=== PATIENT | male | born 1975 | race Caucasian/White ===

== ENCOUNTER 2017-04-14 19:56 | Emergency (ER) | payer BC, OTHER ==
[2017-04-14 20:33] VITALS: BP 114/89
--- NOTE | 2017-04-14 21:42 | EDM.PDOC ---
ED HPI GENERAL MEDICAL PROBLEM - General Chief Complaint: Upper Extremity Injury/Pain Stated Complaint: feel at work hand pain [phone] Time Seen by Provider: 04/14/17 21:30 Source of Information: Reports: Patient History Limitations: Reports: No Limitations - History of Present Illness INITIAL COMMENTS - FREE TEXT/NARRATIVE: fell at work onto left side when stepped into pile of dried peas and slopped. Initial triage c/o left elbow feeling funny. No c/o at exam, just needed to be checked out for work Treatments DIGITAL ASSOCIATE MEDIA DIRECTOR: Reports: Other (see below) Other Treatments DIGITAL ASSOCIATE MEDIA DIRECTOR: none - Related Data Allergies Allergy/AdvReac Type Severity Reaction Status Date / Time No Known Allergies Allergy Verified 11/13/16 17:27 Home Meds: Home Meds Omeprazole 20 mg PO DAILY 11/04/13 [History] Triamterene/Hydrochlorothiazid [Triamterene-HCTZ 37.5-25 MG] 1 each PO DAILY [History] Pramipexole [Mirapex] 0.25 mg PO BEDTIME 08/08/16 [History] Sertraline [Zoloft] 50 mg PO DAILY 08/08/16 [History] Simvastatin [Zocor] 40 mg PO DAILY 08/08/16 [History] clomiPHENE Citrate [Serophene] 25 mg PO DAILY 08/08/16 [History] metFORMIN [Glucophage] 500 mg PO BIDMEALS 08/08/16 [History] Warfarin [Coumadin] 7.5 mg PO DAILY 04/14/17 [History] Past Medical History HEENT History: Reports: Impaired Vision Other HEENT History: wears corrective lenses Cardiovascular History: Reports: High Cholesterol, Hypertension Respiratory History: Reports: PE Other Respiratory History: "blood clots in the lung" Gastrointestinal History: Reports: GERD Genitourinary History: Reports: None Other Musculoskeletal History: carpal tunnel surgery right hand 6 mo ago Neurological History: Reports: None Psychiatric History: Reports: Depression Endocrine/Metabolic History: Reports: Diabetes, Type II Hematologic History: Reports: Anticoagulation Therapy Immunologic History: Reports: None Oncologic (Cancer) History: Reports: None Dermatologic History: Reports: None - Infectious Disease History Infectious Disease History: Reports: None - Past Surgical History Head Surgeries/Procedures: Reports: None Social & Family History - Family History Family Medical History: Noncontributory Cardiac: Reports: CAD, Hypertension - Tobacco Use Smoking Status *Q: Never Smoker Used Tobacco, but Quit: No Second Hand Smoke Exposure: Yes - Caffeine Use Caffeine Use: Reports: Coffee, Energy Drinks, Soda - Alcohol Use Days Per Week of Alcohol Use: 1 Number of Drinks Per Day: 1 Total Drinks Per Week: 1 - Recreational Drug Use Recreational Drug Use: No Drug Use in Last 12 Months: No Review of Systems - Review of Systems Review Of Systems: See Below Constitutional: Reports: No Symptoms Musculoskeletal: Denies: Hand Pain, Joint Pain, Joint Swelling, Muscle Pain, Muscle Stiffness Skin: Reports: No Symptoms Neurological: Reports: No Symptoms. Denies: Numbness, Weakness ED EXAM, GENERAL - Physical Exam Exam: See Below Exam Limited By: No Limitations General Appearance: Alert, No Apparent Distress, Obese Ears: Normal External Exam Nose: Normal Inspection Throat/Mouth: Normal Inspection Respiratory/Chest: No Respiratory Distress Cardiovascular: Normal Peripheral Pulses, Regular Rate, Rhythm Back Exam: Normal Inspection Extremities: Normal Inspection, Normal Range of Motion, Non-Tender. No: Pedal Edema, Arm Pain, Leg Pain, Limited Range of Motion, Redness Neurological: Alert, Oriented Psychiatric: Normal Affect Skin Exam: Warm, Dry, Intact Course - Vital Signs Last Recorded V/S: Last Vital Signs Temp 97.4 F 04/14/17 20:00 Pulse 105 H 04/14/17 20:00 Resp 18 04/14/17 20:00 BP 114/89 04/14/17 20:00 Pulse Ox 84 L 04/14/17 20:00 Departure - Departure Time of Disposition: 21:38 Disposition: Home, Self-Care 01 Condition: good Clinical Impression: Fall Qualifiers: Encounter type: initial encounter Qualified Code(s): W19.XXXA - Unspecified fall, initial encounter - Discharge Information Instructions: Burner or Stinger Nerve Injury With [facility] Forms: ED Department Discharge Additional Instructions: follow up as needed if pain develops may use tyelenol or ibuprofen No indication for xray as there Full range of motion without pain, no change in sensation
== END 2017-04-14 21:45 | disposition home or self-care (01) ==
LOC: DL.ED 19:56
DX: Z04.3 Encounter for examination and observation following other accident (principal); E78.00 Pure hypercholesterolemia, unspecified; I10 Essential (primary) hypertension; K21.9 Gastro-esophageal reflux disease without esophagitis; E11.9 Type 2 diabetes mellitus without complications; F32.9 Major depressive disorder, single episode, unspecified; Z79.899 Other long term (current) drug therapy; W19.XXXA Unspecified fall, initial encounter; Y99.0 Civilian activity done for income or pay
CPT/HCPCS: 99283

== ENCOUNTER 2017-07-01 15:15 | Emergency (ER) | payer BC, MEDICAID ==
--- NOTE | 2017-07-01 15:40 | EDM.PDOC ---
ED HPI GENERAL MEDICAL PROBLEM - General Chief Complaint: General Stated Complaint: MIGRAINES, [id number] Time Seen by Provider: 07/01/17 15:35 Source of Information: Reports: Patient History Limitations: Reports: No Limitations - History of Present Illness INITIAL COMMENTS - FREE TEXT/NARRATIVE: 42 yo white male c/o fuzzy sensation and blurred vision last PM and then again this AM. PMHx. Pulmonary Embolus and takes Coumadin Onset Date: 06/17/17 Onset Time: 12:00 Duration: Week(s): Severity: Moderate - Related Data Allergies Allergy/AdvReac Type Severity Reaction Status Date / Time No Known Allergies Allergy Verified 11/13/16 17:27 Home Meds: Home Meds Omeprazole 20 mg PO DAILY 11/04/13 [History] Triamterene/Hydrochlorothiazid [Triamterene-HCTZ 37.5-25 MG] 1 each PO DAILY [History] Pramipexole [Mirapex] 0.25 mg PO BEDTIME 08/08/16 [History] Sertraline [Zoloft] 50 mg PO DAILY 08/08/16 [History] Simvastatin [Zocor] 40 mg PO DAILY 08/08/16 [History] clomiPHENE Citrate [Serophene] 25 mg PO DAILY 08/08/16 [History] metFORMIN [Glucophage] 500 mg PO BIDMEALS 08/08/16 [History] Warfarin [Coumadin] 7.5 mg PO DAILY 04/14/17 [History] Past Medical History HEENT History: Reports: Impaired Vision Other HEENT History: wears corrective lenses Cardiovascular History: Reports: High Cholesterol, Hypertension Respiratory History: Reports: PE Other Respiratory History: "blood clots in the lung" Gastrointestinal History: Reports: GERD Genitourinary History: Reports: None Other Musculoskeletal History: carpal tunnel surgery right hand 6 mo ago Neurological History: Reports: None Psychiatric History: Reports: Depression Endocrine/Metabolic History: Reports: Diabetes, Type II Hematologic History: Reports: Anticoagulation Therapy Immunologic History: Reports: None Oncologic (Cancer) History: Reports: None Dermatologic History: Reports: None - Infectious Disease History Infectious Disease History: Reports: None - Past Surgical History Head Surgeries/Procedures: Reports: None Social & Family History - Family History Family Medical History: Noncontributory Cardiac: Reports: CAD, Hypertension - Tobacco Use Smoking Status *Q: Never Smoker Used Tobacco, but Quit: No Second Hand Smoke Exposure: Yes - Caffeine Use Caffeine Use: Reports: Coffee, Energy Drinks, Soda - Alcohol Use Days Per Week of Alcohol Use: 1 Number of Drinks Per Day: 1 Total Drinks Per Week: 1 - Recreational Drug Use Recreational Drug Use: No Drug Use in Last 12 Months: No ED ROS GENERAL - Review of Systems Review Of Systems: See Below Constitutional: Reports: No Symptoms HEENT: Reports: No Symptoms, Vision Change (mild blurred vision) Respiratory: Reports: No Symptoms Cardiovascular: Reports: No Symptoms Endocrine: Reports: No Symptoms GI/Abdominal: Reports: No Symptoms : Reports: No Symptoms Musculoskeletal: Reports: No Symptoms Skin: Reports: No Symptoms Neurological: Reports: Dizziness Psychiatric: Reports: No Symptoms Hematologic/Lymphatic: Reports: No Symptoms Immunologic: Reports: No Symptoms ED EXAM, GENERAL - Physical Exam Exam: See Below Exam Limited By: No Limitations General Appearance: Obese (morbid) Eye Exam: Bilateral Eye: EOMI, PERRL Ears: Normal External Exam Nose: Normal Inspection Throat/Mouth: Normal Inspection Head: Atraumatic, Normocephalic Neck: Normal Inspection, Supple Respiratory/Chest: No Respiratory Distress, Lungs Clear Cardiovascular: Normal Peripheral Pulses, Regular Rate, Rhythm Peripheral Pulses: 2+: Carotid (L), Carotid (R) GI/Abdominal: Normal Bowel Sounds, Soft Back Exam: Normal Inspection Extremities: Normal Inspection, Normal Range of Motion, Non-Tender Neurological: Alert, Oriented, CN II-XII Intact, Normal Cognition Psychiatric: Normal Affect Skin Exam: Warm, Dry Lymphatic: No Adenopathy Course - Vital Signs Last Recorded V/S: Last Vital Signs Temp 36.3 C 07/01/17 15:34 Pulse 93 07/01/17 15:34 Resp BP 94/48 L 07/01/17 15:36 Pulse Ox 92 L 07/01/17 15:34 - Orders/Labs/Meds Orders: Active Orders 24 hr Category Date Time Status Head wo Cont [CT] Urgent Exams 07/01/17 15:39 Taken DOPamine/Dextrose 5%-Water [DOPamine in D5W 400 MG/250 Med 07/01/17 16:30 Active ML] 400 mg in 250 ml IV TITRATE Sodium Chloride 0.9% [Normal Saline] 1,000 ml Med 07/01/17 15:45 Active IV ASDIRECTED Medication Orders Sodium Chloride (Normal Saline) 1,000 mls @ 75 mls/hr IV ASDIRECTED YULISA Last Admin: 07/01/17 15:43 Dose: 75 mls/hr Dopamine HCl/Dextrose (Dopamine In D5w 400 Mg/250 Ml) 400 mg in 250 mls @ 13.438 mls/hr IV TITRATE YULISA; 2 MCG/KG/MIN PRN Reason: Protocol Labs: Laboratory Tests 07/01/17 07/01/17 07/01/17 Range/Units 15:38 15:38 15:38 WBC 9.4 (5.0-10.0) 10^3/uL RBC 5.65 (4.6-6.2) 10^6/uL Hgb 14.6 (14.0-18.0) g/dL Hct 46.5 (40.0-54.0) % MCV 82.3 (80-100) fL MCH 25.8 L (27.0-34.0) pg MCHC 31.4 L (33.0-35.0) g/dL Plt Count 280 (150-450) 10^3/uL Neut % (Auto) 59.1 (42.2-75.2) % Lymph % (Auto) 28.9 (20.5-50.1) % Campbell % (Auto) 9.7 H (2-8) % Eos % (Auto) 2.0 (1.0-3.0) % Baso % (Auto) 0.3 (0.0-1.0) % PT 41.4 H (9.0-12.0) SEC INR 4.1 H (0.9-1.2) APTT 43.1 H (22.0-34.0) SEC Sodium 137 (135-145) mmol/L Potassium 4.4 (3.6-5.0) mmol/L Chloride 96 L (101-111) mmol/L Carbon Dioxide 24.0 (21.0-31.0) mmol/L Anion Gap 21.4 BUN 80 H (7-18) mg/dL Creatinine 7.7 H (0.6-1.3) mg/dL Est Cr Clr Drug Dosing 12.90 mL/min Estimated GFR (MDRD) 8 BUN/Creatinine Ratio 10.38 Glucose 120 H (74-105) mg/dL Calcium 8.7 (8.4-10.2) mg/dl Total Bilirubin 0.5 (0.2-1.0) mg/dL AST 39 (10-42) IU/L ALT 32 (10-60) IU/L Alkaline Phosphatase 51 (42-121) IU/L Troponin I 0.04 H* (0.00-0.02) ng/ml Total Protein 7.3 (6.7-8.2) g/dl Albumin 3.4 (3.2-5.5) g/dl Globulin 3.9 Albumin/Globulin Ratio 0.87 Meds: Medications Generic Name Dose Route Start Last Admin Trade Name Freq PRN Reason Stop Dose Admin Sodium Chloride 1,000 mls @ 75 mls/hr 07/01/17 15:45 07/01/17 15:43 Normal Saline IV 75 mls/hr ASDIRECTED YULISA Administration Dopamine HCl/Dextrose 400 mg in 250 mls @ 13.438 mls/hr 07/01/17 16:30 Dopamine In D5w 400 Mg/250 Ml IV TITRATE YULISA Protocol 2 MCG/KG/MIN Departure - Departure Time of Disposition: 16:55 Disposition: DC/Tfer to Other 70 Condition: Fair Clinical Impression: Elevated troponin Hypotension Qualifiers: Hypotension type: unspecified hypotension type Qualified Code(s): I95.9 - Hypotension, unspecified Renal failure Qualifiers: Renal failure chronicity: acute Acute renal failure type: unspecified Qualified Code(s): N17.9 - Acute kidney failure, unspecified - Discharge Information Forms: Interfacility Transfer EMTALA - My Orders Last 24 Hours: My Active Orders 07/01/17 15:39 Head wo Cont [CT] Urgent 07/01/17 15:45 Sodium Chloride 0.9% [Normal Saline] 1,000 ml IV ASDIRECTED 07/01/17 16:30 DOPamine/Dextrose 5%-Water [DOPamine in D5W 400 MG/250 ML] 400 mg in 250 ml IV TITRATE - Assessment/Plan Last 24 Hours: My Active Orders 07/01/17 15:39 Head wo Cont [CT] Urgent 07/01/17 15:45 Sodium Chloride 0.9% [Normal Saline] 1,000 ml IV ASDIRECTED 07/01/17 16:30 DOPamine/Dextrose 5%-Water [DOPamine in D5W 400 MG/250 ML] 400 mg in 250 ml IV TITRATE
[2017-07-01] MEDS ORDERED: Sodium Chloride 0.9% 1,000 ML IV SCH (15:45)
[2017-07-01] MEDS ORDERED: DOPamine/Dextrose 5%-Water 400 MG/250 ML BAG IV SCH (16:30)
[2017-07-01] MEDS ORDERED: Sodium Chloride 0.9% 1,000 ML IV ONE ×2 (16:55→16:56)
[2017-07-01 17:07] VITALS: BP 72/28
== END 2017-07-01 17:21 | disposition other institution (70) ==
LOC: DL.ED 15:15
DX: I95.9 Hypotension, unspecified (principal); N17.9 Acute kidney failure, unspecified; R79.89 Other specified abnormal findings of blood chemistry; I10 Essential (primary) hypertension; E78.00 Pure hypercholesterolemia, unspecified; K21.9 Gastro-esophageal reflux disease without esophagitis; F32.9 Major depressive disorder, single episode, unspecified; E11.9 Type 2 diabetes mellitus without complications; Z79.84 Long term (current) use of oral hypoglycemic drugs; Z79.01 Long term (current) use of anticoagulants; Z79.899 Other long term (current) drug therapy; Z86.711 Personal history of pulmonary embolism
CPT/HCPCS: 36415; 70450; 80053; 84484; 85025; 85610; 85730; 96360; 96361; 96365; 99285; J1265; J7030

== ENCOUNTER 2017-10-31 18:05 | Emergency (ER) | payer MEDICAID ==
--- NOTE | 2017-10-31 18:43 | EDM.PDOC ---
<Shaq Espino Bradley - Last Filed: 10/31/17 18:48> ED HPI GENERAL MEDICAL PROBLEM - General Chief Complaint: Abdominal Pain Stated Complaint: LOWER RIGHT SIDE ABD PAINS, [id number] Time Seen by Provider: 10/31/17 18:35 Source of Information: Reports: Patient History Limitations: Reports: No Limitations - History of Present Illness INITIAL COMMENTS - FREE TEXT/NARRATIVE: This 42 yo male patient reports to the ED with intermittent right lower quadrant abdominal pain. The patient reports his pain started at about 1430 while he was washing dishes. The patient reports his symptoms come like "twinges ". The patient reports he has a history of Type 2 diabetes, anxiety and blood clots. The patient also reported to nursing staff that his "kidneys stopped working quite a while ago." Onset: Today Onset Date: 10/31/17 Onset Time: 14:30 Duration: Intermittent Location: Reports: Abdomen (right lower quadrant pain) Quality: Reports: Sharp Severity: Moderate Improves with: Reports: None Worsens with: Reports: None Associated Symptoms: Reports: No Other Symptoms Right Lower Abdominal Pain Score (Numeric/FACES): 5 - Related Data Allergies Allergy/AdvReac Type Severity Reaction Status Date / Time No Known Allergies Allergy Verified 10/31/17 18:10 Home Meds: Home Meds Omeprazole 20 mg PO DAILY 11/04/13 [History] Triamterene/Hydrochlorothiazid [Triamterene-HCTZ 37.5-25 MG] 1 each PO DAILY [History] Pramipexole [Mirapex] 0.25 mg PO BEDTIME 08/08/16 [History] Sertraline [Zoloft] 50 mg PO DAILY 08/08/16 [History] Simvastatin [Zocor] 40 mg PO DAILY 08/08/16 [History] clomiPHENE Citrate [Serophene] 25 mg PO DAILY 08/08/16 [History] metFORMIN [Glucophage] 1,000 mg PO BIDMEALS 08/08/16 [History] Warfarin [Coumadin] 11 mg PO DAILY 04/14/17 [History] Lisinopril 5 mg PO DAILY 10/31/17 [History] glyBURIDE [Glyburide] 5 mg PO 10/31/17 [History] traZODone HCl [Trazodone HCl] 100 mg PO BEDTIME 10/31/17 [History] Past Medical History HEENT History: Reports: Impaired Vision Other HEENT History: wears corrective lenses Cardiovascular History: Reports: High Cholesterol, Hypertension Respiratory History: Reports: PE Other Respiratory History: "blood clots in the lung" Gastrointestinal History: Reports: GERD Genitourinary History: Reports: None Other Musculoskeletal History: carpal tunnel surgery right hand Neurological History: Reports: None Psychiatric History: Reports: Depression Endocrine/Metabolic History: Reports: Diabetes, Type II Hematologic History: Reports: Anticoagulation Therapy Immunologic History: Reports: None Oncologic (Cancer) History: Reports: None Dermatologic History: Reports: None - Infectious Disease History Infectious Disease History: Reports: None - Past Surgical History Head Surgeries/Procedures: Reports: None Social & Family History - Family History Family Medical History: Noncontributory Cardiac: Reports: CAD, Hypertension - Tobacco Use Smoking Status *Q: Never Smoker Used Tobacco, but Quit: No Second Hand Smoke Exposure: Yes - Caffeine Use Caffeine Use: Reports: Soda - Alcohol Use Days Per Week of Alcohol Use: 1 Number of Drinks Per Day: 1 Total Drinks Per Week: 1 - Recreational Drug Use Recreational Drug Use: No Drug Use in Last 12 Months: No ED ROS GENERAL - Review of Systems Review Of Systems: ROS reveals no pertinent complaints other than HPI. ED EXAM, GI/ABD - Physical Exam Exam: See Below Exam Limited By: No Limitations General Appearance: Alert, WD/WN, Mild Distress, Obese (morbid obesity ) Eyes: Bilateral: Normal Appearance, EOMI Ears: Normal External Exam, Normal Canal, Hearing Grossly Normal, Normal TMs Nose: Normal Inspection, Normal Mucosa, No Blood Throat/Mouth: Normal Inspection, Normal Lips, Normal Teeth, Normal Gums, Normal Oropharynx, Normal Voice, No Airway Compromise Head: Atraumatic, Normocephalic Neck: Normal Inspection, Supple, Non-Tender, Full Range of Motion Respiratory/Chest: No Respiratory Distress, Lungs Clear, Normal Breath Sounds, No Accessory Muscle Use, Chest Non-Tender Cardiovascular: Normal Peripheral Pulses, Regular Rate, Rhythm, No Edema, No Gallop, No JVD, No Murmur, No Rub GI/Abdominal Exam: Normal Bowel Sounds, Soft, Non-Tender, No Organomegaly, No Distention, No Abnormal Bruit, Other (morbid obesity limits examination) (Male) Exam: Deferred Rectal (Males) Exam: Deferred Back Exam: Normal Inspection, Full Range of Motion, NT Extremities: Normal Inspection, Normal Range of Motion, Non-Tender, Pedal Edema (chronic) Neurological: Alert, Oriented, CN II-XII Intact, Normal Cognition, Normal Reflexes, No Motor/Sensory Deficits Psychiatric: Normal Affect, Normal Mood Skin Exam: Warm, Dry, Intact, Normal Color, No Rash Lymphatic: No Adenopathy Course - Vital Signs Last Recorded V/S: Last Vital Signs Temp 98.6 F 10/31/17 20:38 Pulse 75 10/31/17 20:38 Resp 16 10/31/17 20:38 BP 101/55 L 10/31/17 20:38 Pulse Ox 92 L 10/31/17 20:38 - Orders/Labs/Meds Orders: Active Orders 24 hr Category Date Time Status Abdomen Pelvis wo Cont [CT] Urgent Exams 10/31/17 19:48 Taken DRUG SCREEN URINE BIORAD [URCHEM] Stat Lab 10/31/17 18:24 Uncollected UA W/MICROSCOPIC [URIN] Stat Lab 10/31/17 18:24 Uncollected Labs: Laboratory Tests 10/31/17 10/31/17 10/31/17 Range/Units 18:39 18:39 18:39 WBC 13.2 H (5.0-10.0) 10^3/uL RBC 5.15 (4.6-6.2) 10^6/uL Hgb 14.6 (14.0-18.0) g/dL Hct 45.6 (40.0-54.0) % MCV 88.5 D (80-100) fL MCH 28.3 (27.0-34.0) pg MCHC 32.0 L (33.0-35.0) g/dL Plt Count 299 (150-450) 10^3/uL Neut % (Auto) 63.8 (42.2-75.2) % Lymph % (Auto) 26.5 (20.5-50.1) % Ness % (Auto) 7.8 (2-8) % Eos % (Auto) 1.7 (1.0-3.0) % Baso % (Auto) 0.2 (0.0-1.0) % PT 21.1 H D (9.0-12.0) SEC INR 2.1 H (0.9-1.2) D-Dimer, Quantitative (0-400) ng/mL Sodium 136 (135-145) mmol/L Potassium 3.6 (3.6-5.0) mmol/L Chloride 97 L (101-111) mmol/L Carbon Dioxide 30.0 (21.0-31.0) mmol/L Anion Gap 12.6 BUN 17 D (7-18) mg/dL Creatinine 0.9 D (0.6-1.3) mg/dL Est Cr Clr Drug Dosing 110.40 mL/min Estimated GFR (MDRD) > 60 BUN/Creatinine Ratio 18.88 Glucose 109 H (74-105) mg/dL Calcium 8.7 (8.4-10.2) mg/dl Total Bilirubin 0.4 (0.2-1.0) mg/dL AST 20 (10-42) IU/L ALT 20 (10-60) IU/L Alkaline Phosphatase 47 (42-121) IU/L Total Protein 7.3 (6.7-8.2) g/dl Albumin 3.6 (3.2-5.5) g/dl Globulin 3.7 Albumin/Globulin Ratio 0.97 Amylase (28-100) U/L Lipase (22-51) U/L 10/31/17 10/31/17 Range/Units 18:39 18:57 WBC (5.0-10.0) 10^3/uL RBC (4.6-6.2) 10^6/uL Hgb (14.0-18.0) g/dL Hct (40.0-54.0) % MCV (80-100) fL MCH (27.0-34.0) pg MCHC (33.0-35.0) g/dL Plt Count (150-450) 10^3/uL Neut % (Auto) (42.2-75.2) % Lymph % (Auto) (20.5-50.1) % Ness % (Auto) (2-8) % Eos % (Auto) (1.0-3.0) % Baso % (Auto) (0.0-1.0) % PT (9.0-12.0) SEC INR (0.9-1.2) D-Dimer, Quantitative < 100 (0-400) ng/mL Sodium (135-145) mmol/L Potassium (3.6-5.0) mmol/L Chloride (101-111) mmol/L Carbon Dioxide (21.0-31.0) mmol/L Anion Gap BUN (7-18) mg/dL Creatinine (0.6-1.3) mg/dL Est Cr Clr Drug Dosing mL/min Estimated GFR (MDRD) BUN/Creatinine Ratio Glucose (74-105) mg/dL Calcium (8.4-10.2) mg/dl Total Bilirubin (0.2-1.0) mg/dL AST (10-42) IU/L ALT (10-60) IU/L Alkaline Phosphatase (42-121) IU/L Total Protein (6.7-8.2) g/dl Albumin (3.2-5.5) g/dl Globulin Albumin/Globulin Ratio Amylase 30 (28-100) U/L Lipase 16 L (22-51) U/L Departure - Departure Disposition: Home, Self-Care 01 Clinical Impression: Abdominal pain Qualifiers: Abdominal location: right lower quadrant Qualified Code(s): R10.31 - Right lower quadrant pain - Discharge Information Instructions: Abdominal Pain, Adult, [id number] Forms: ED Department Discharge Additional Instructions: tylenol 650mg every 4 hours s needed increase fruit and fiber in diet follow up in clinic with primary care if pain not improving - My Orders Last 24 Hours: My Active Orders 10/31/17 19:48 Abdomen Pelvis wo Cont [CT] Urgent - Assessment/Plan Last 24 Hours: My Active Orders 10/31/17 19:48 Abdomen Pelvis wo Cont [CT] Urgent <Linnette Cardenas - Last Filed: 10/31/17 20:57> Course - Radiology Interpretation Free Text/Narrative:: CT abdomen and pelvis: No evidence of acute abdominopelvic pathology. - Re-Assessments/Exams Free Text/Narrative Re-Assessment/Exam: 10/31/17 20:55 Pain intermittent no change in severity. CT abdomen negative. Departure - Departure Time of Disposition: 20:56 Condition: Good
[2017-10-31 19:12] LABS: CHLORIDE,CL 97 mmol/L (101-111); SODIUM,NA 136 mmol/L (135-145)
[2017-10-31 21:03] VITALS: BP 103/48
== END 2017-10-31 21:10 | disposition home or self-care (01) ==
LOC: DL.ED 18:05
DX: R10.31 Right lower quadrant pain (principal); I10 Essential (primary) hypertension; E66.01 Morbid (severe) obesity due to excess calories; E78.00 Pure hypercholesterolemia, unspecified; E11.9 Type 2 diabetes mellitus without complications; K21.9 Gastro-esophageal reflux disease without esophagitis; Z79.01 Long term (current) use of anticoagulants; Z77.22 Contact with and (suspected) exposure to environmental tobacco smoke (acute) (chronic); Z79.84 Long term (current) use of oral hypoglycemic drugs; Z79.899 Other long term (current) drug therapy
CPT/HCPCS: 36415; 74176; 80053; 82150; 83690; 85025; 85379; 85610; 99284

== ENCOUNTER 2018-01-02 07:53 | Emergency (ER) | payer MEDICAID ==
[2018-01-02 08:03] VITALS: BP 131/74
[2018-01-02] MEDS ORDERED: Sodium Chloride 0.9% 1,000 ML IV ONE (08:44)
--- NOTE | 2018-01-02 08:51 | EDM.PDOC ---
ED HPI GENERAL MEDICAL PROBLEM - General Chief Complaint: General Stated Complaint: DIZZY, HEADACH, [id number] Time Seen by Provider: 01/02/18 08:40 Source of Information: Reports: Patient History Limitations: Reports: No Limitations - History of Present Illness INITIAL COMMENTS - FREE TEXT/NARRATIVE: This 42 yo male patient was brought to the ED due to intermittent "twinges" of a headache and intermittent dizziness over the past 2-4 days. The patient denies any nausea/vomiting, diarrhea or fevers/chills. The patient reports he has not been drinking much water over the past week, but has been drinking more soda over the past week. The patient has not been seen by his primary care facility at this time. Duration: Day(s):, Intermittent Location: Reports: Generalized Severity: Mild Improves with: Reports: None Worsens with: Reports: None Associated Symptoms: Reports: Headaches (intermittent "twinges"), Other ( intermittent dizzy spells) Treatments [employer] E[employer]MENT [employer]ATOR: Denies: Acetaminophen, NSAIDS - Related Data Allergies Allergy/AdvReac Type Severity Reaction Status Date / Time No Known Allergies Allergy Verified 01/02/18 08:00 Home Meds: Home Meds Omeprazole 20 mg PO DAILY 11/04/13 [History] Triamterene/Hydrochlorothiazid [Triamterene-HCTZ 37.5-25 MG] 1 each PO DAILY [History] Pramipexole [Mirapex] 0.25 mg PO BEDTIME 08/08/16 [History] Sertraline [Zoloft] 50 mg PO DAILY 08/08/16 [History] Simvastatin [Zocor] 40 mg PO DAILY 08/08/16 [History] clomiPHENE Citrate [Serophene] 25 mg PO DAILY 08/08/16 [History] metFORMIN [Glucophage] 1,000 mg PO BIDMEALS 08/08/16 [History] Warfarin [Coumadin] 11 mg PO DAILY 04/14/17 [History] Lisinopril 5 mg PO DAILY 10/31/17 [History] glyBURIDE [Glyburide] 5 mg PO 10/31/17 [History] traZODone HCl [Trazodone HCl] 100 mg PO BEDTIME 10/31/17 [History] Past Medical History HEENT History: Reports: Impaired Vision Other HEENT History: wears corrective lenses Cardiovascular History: Reports: High Cholesterol, Hypertension Respiratory History: Reports: PE Other Respiratory History: "blood clots in the lung" Gastrointestinal History: Reports: GERD Genitourinary History: Reports: None Other Musculoskeletal History: carpal tunnel surgery right hand Neurological History: Reports: None Psychiatric History: Reports: Depression Endocrine/Metabolic History: Reports: Diabetes, Type II Hematologic History: Reports: Anticoagulation Therapy Immunologic History: Reports: None Oncologic (Cancer) History: Reports: None Dermatologic History: Reports: None - Infectious Disease History Infectious Disease History: Reports: None - Past Surgical History Head Surgeries/Procedures: Reports: None Social & Family History - Family History Family Medical History: Noncontributory Cardiac: Reports: CAD, Hypertension - Tobacco Use Smoking Status *Q: Never Smoker Used Tobacco, but Quit: No Second Hand Smoke Exposure: No - Caffeine Use Caffeine Use: Reports: Soda - Alcohol Use Days Per Week of Alcohol Use: 1 Number of Drinks Per Day: 1 Total Drinks Per Week: 1 - Recreational Drug Use Recreational Drug Use: No Drug Use in Last 12 Months: No ED ROS GENERAL - Review of Systems Review Of Systems: ROS reveals no pertinent complaints other than HPI. ED EXAM, GENERAL - Physical Exam Exam: See Below Exam Limited By: No Limitations General Appearance: Alert, WD/WN, Moderate Distress, Obese Eye Exam: Bilateral Eye: EOMI, Normal Inspection, PERRL Ears: Normal External Exam, Normal Canal, Hearing Grossly Normal, Normal TMs Nose: Normal Inspection, Normal Mucosa, No Blood Throat/Mouth: Normal Inspection, Normal Lips, Normal Teeth, Normal Gums, Normal Oropharynx, Normal Voice, No Airway Compromise Head: Atraumatic, Normocephalic Neck: Normal Inspection, Supple, Non-Tender, Full Range of Motion Respiratory/Chest: No Respiratory Distress, Lungs Clear, Normal Breath Sounds, No Accessory Muscle Use, Chest Non-Tender Cardiovascular: Normal Peripheral Pulses, Regular Rate, Rhythm, No Edema, No Gallop, No JVD, No Murmur, No Rub GI/Abdominal: Normal Bowel Sounds, Soft, Non-Tender, No Organomegaly, No Distention, No Abnormal Bruit, No Mass, Other (morbid obesity) (Male) Exam: Deferred Rectal (Males) Exam: Deferred Back Exam: Normal Inspection, Full Range of Motion, NT Extremities: Normal Inspection, Normal Range of Motion, Non-Tender, Normal Capillary Refill, No Pedal Edema Neurological: Alert, Oriented, CN II-XII Intact, Normal Cognition, Normal Gait, Normal Reflexes, No Motor/Sensory Deficits Psychiatric: Normal Affect, Normal Mood Skin Exam: Warm, Dry, Intact, Normal Color, No Rash Lymphatic: No Adenopathy Course - Vital Signs Last Recorded V/S: Last Vital Signs Temp 36.4 C 01/02/18 08:01 Pulse 84 01/02/18 08:01 Resp 18 01/02/18 08:01 BP 131/74 01/02/18 08:01 Pulse Ox 95 01/02/18 08:01 - Orders/Labs/Meds Orders: Active Orders 24 hr Category Date Time Status Sodium Chloride 0.9% [Normal Saline] 1,000 ml Med 01/02/18 08:44 Active IV .BOLUS Medication Orders Sodium Chloride (Normal Saline) 1,000 mls @ 999 mls/hr IV .BOLUS ONE Stop: 01/02/18 09:44 Last Admin: 01/02/18 09:01 Dose: 999 mls/hr Labs: Laboratory Tests 01/02/18 01/02/18 Range/Units 08:53 08:53 WBC 9.1 (5.0-10.0) 10^3/uL RBC 4.91 (4.6-6.2) 10^6/uL Hgb 13.9 L (14.0-18.0) g/dL Hct 43.7 (40.0-54.0) % MCV 89.0 (80-100) fL MCH 28.3 (27.0-34.0) pg MCHC 31.8 L (33.0-35.0) g/dL Plt Count 292 (150-450) 10^3/uL Neut % (Auto) 58.9 (42.2-75.2) % Lymph % (Auto) 30.9 (20.5-50.1) % [place] % (Auto) 7.8 (2-8) % Eos % (Auto) 2.2 (1.0-3.0) % Baso % (Auto) 0.2 (0.0-1.0) % Sodium 139 (135-145) mmol/L Potassium 3.9 (3.6-5.0) mmol/L Chloride 99 L (101-111) mmol/L Carbon Dioxide 32.0 H (21.0-31.0) mmol/L Anion Gap 11.9 BUN 14 (7-18) mg/dL Creatinine 0.7 (0.6-1.3) mg/dL Est Cr Clr Drug Dosing 141.94 mL/min Estimated GFR (MDRD) > 60 BUN/Creatinine Ratio 20.00 Glucose 149 H (74-105) mg/dL Calcium 8.7 (8.4-10.2) mg/dl Total Bilirubin 0.4 (0.2-1.0) mg/dL AST 23 (10-42) IU/L ALT 22 (10-60) IU/L Alkaline Phosphatase 45 (42-121) IU/L Total Protein 6.8 (6.7-8.2) g/dl Albumin 3.2 (3.2-5.5) g/dl Globulin 3.6 Albumin/Globulin Ratio 0.89 Meds: Medications Generic Name Dose Route Start Last Admin Trade Name Freq PRN Reason Stop Dose Admin Sodium Chloride 1,000 mls @ 999 mls/hr 01/02/18 08:44 01/02/18 09:01 Normal Saline IV 01/02/18 09:44 999 mls/hr .BOLUS ONE Administration Departure - Departure Time of Disposition: 09:25 Disposition: Home, Self-Care 01 Condition: Good Clinical Impression: Dehydration, mild - Discharge Information Instructions: Dehydration, Adult, [id number] Forms: ED Department Discharge Care Plan Goals: The patient was advised of the examination and lab results during the visit. The patient was encouraged to increase his oral fluid intake and decrease his intake of soda. If the patient has any additional symptoms or concerns, the patient should follow-up with his primary care facility or return to the emergency department. - My Orders Last 24 Hours: My Active Orders 01/02/18 08:44 Sodium Chloride 0.9% [Normal Saline] 1,000 ml IV .BOLUS - Assessment/Plan Last 24 Hours: My Active Orders 01/02/18 08:44 Sodium Chloride 0.9% [Normal Saline] 1,000 ml IV .BOLUS
[2018-01-02 09:21] LABS: CHLORIDE,CL 99 mmol/L (101-111); SODIUM,NA 139 mmol/L (135-145)
== END 2018-01-02 09:46 | disposition home or self-care (01) ==
LOC: DL.ED 07:53
DX: E86.0 Dehydration (principal); E78.00 Pure hypercholesterolemia, unspecified; I10 Essential (primary) hypertension; E11.9 Type 2 diabetes mellitus without complications; Z79.899 Other long term (current) drug therapy; Z79.01 Long term (current) use of anticoagulants
CPT/HCPCS: 36415; 80053; 85025; 96360; 99284; J7030

== ENCOUNTER 2019-09-12 13:32 | Emergency (ER) | payer BC ==
[2019-09-12 13:41] VITALS: BP 120/82
[2019-09-12 13:52] VITALS: PULSE 111
--- NOTE | 2019-09-12 14:18 | EDM.PDOC ---
ED HPI GENERAL MEDICAL PROBLEM - General Chief Complaint: Gastrointestinal Problem Stated Complaint: ANAL BLEEDING Time Seen by Provider: 09/12/19 14:05 Source of Information: Reports: Patient History Limitations: Reports: No Limitations - History of Present Illness INITIAL COMMENTS - FREE TEXT/NARRATIVE: This 44 yo male patient reports to the ED due to bleeding from his buttocks. The patient reports he has been having intermittent diarrhea over the past two weeks. Today, the patient reports he was at work when he noticed a blood spot in the back of his pants. The patient reports he has some abdominal discomfort, but the symptoms have been intermittent for the past couple of weeks. The patient reports he has been taking his medications as prescribed. Onset: Today Duration: Other Location: Reports: Other Quality: Reports: Other Severity: Moderate Improves with: Reports: Other Worsens with: Reports: None Context: Reports: Other Associated Symptoms: Reports: No Other Symptoms - Related Data Allergies Allergy/AdvReac Type Severity Reaction Status Date / Time No Known Allergies Allergy Verified 09/12/19 13:42 Home Meds: Home Meds Omeprazole 20 mg PO DAILY 11/04/13 [History] Pramipexole [Mirapex] 0.25 mg PO BEDTIME 08/08/16 [History] clomiPHENE Citrate [Serophene] 25 mg PO DAILY 08/08/16 [History] Warfarin [Coumadin] 11 mg PO DAILY 04/14/17 [History] Lisinopril 5 mg PO DAILY 10/31/17 [History] glyBURIDE [Glyburide] 5 mg PO DAILY 10/31/17 [History] traZODone HCl [Trazodone HCl] 100 mg PO BEDTIME 10/31/17 [History] Liraglutide [Victoza] 1.2 mg SQ DAILY 09/12/19 [History] Past Medical History HEENT History: Reports: Impaired Vision Other HEENT History: wears corrective lenses Cardiovascular History: Reports: High Cholesterol, Hypertension Respiratory History: Reports: PE Other Respiratory History: "blood clots in the lung" Gastrointestinal History: Reports: GERD Genitourinary History: Reports: None Other Musculoskeletal History: carpal tunnel surgery right hand Neurological History: Reports: None Psychiatric History: Reports: Depression Endocrine/Metabolic History: Reports: Diabetes, Type II Hematologic History: Reports: Anticoagulation Therapy Immunologic History: Reports: None Oncologic (Cancer) History: Reports: None Dermatologic History: Reports: None - Infectious Disease History Infectious Disease History: Reports: None - Past Surgical History Head Surgeries/Procedures: Reports: None Social & Family History - Family History Family Medical History: Noncontributory Cardiac: Reports: CAD, Hypertension - Tobacco Use Smoking Status *Q: Never Smoker Second Hand Smoke Exposure: No - Caffeine Use Caffeine Use: Reports: Coffee, Soda - Recreational Drug Use Recreational Drug Use: No - Living Situation & Occupation Living situation: Reports: with Family Occupation: Employed ED ROS GENERAL - Review of Systems Review Of Systems: ROS reveals no pertinent complaints other than HPI. ED EXAM, GI/ABD - Physical Exam Exam: See Below Exam Limited By: No Limitations General Appearance: Alert, WD/WN, Mild Distress, Obese Eyes: Bilateral: Normal Appearance, EOMI Ears: Normal External Exam, Normal Canal, Hearing Grossly Normal, Normal TMs Nose: Normal Inspection, Normal Mucosa, No Blood Throat/Mouth: Normal Inspection, Normal Lips, Normal Teeth, Normal Gums, Normal Oropharynx, Normal Voice, No Airway Compromise Head: Atraumatic, Normocephalic Neck: Normal Inspection, Supple, Non-Tender, Full Range of Motion Respiratory/Chest: No Respiratory Distress, Lungs Clear, Normal Breath Sounds, No Accessory Muscle Use, Chest Non-Tender Cardiovascular: Normal Peripheral Pulses, Regular Rate, Rhythm, No Edema, No Gallop, No JVD, No Murmur, No Rub GI/Abdominal Exam: Normal Bowel Sounds, Soft, Non-Tender, No Organomegaly, No Distention, No Abnormal Bruit, No Mass, Pelvis Stable, Other (obese) (Male) Exam: Deferred Rectal (Males) Exam: Other (the patient has bleeding from an abscess that has drained on his right bottocks) Back Exam: Normal Inspection, Full Range of Motion, NT Extremities: Normal Inspection, Normal Range of Motion, Non-Tender, Normal Capillary Refill, No Pedal Edema Neurological: Alert, Oriented, CN II-XII Intact, Normal Cognition, Normal Gait, Normal Reflexes, No Motor/Sensory Deficits Psychiatric: Normal Affect, Normal Mood Skin Exam: Other Lymphatic: No Adenopathy Course - Vital Signs Last Recorded V/S: Last Vital Signs Temp 36.1 C 09/12/19 13:37 Pulse 111 H 09/12/19 13:51 Resp 20 09/12/19 13:51 BP 120/82 09/12/19 13:37 Pulse Ox 96 09/12/19 13:51 - Orders/Labs/Meds Labs: Laboratory Tests 09/12/19 09/12/19 09/12/19 Range/Units 14:30 14:30 14:30 WBC 13.9 H (5.0-10.0) 10^3/uL RBC 5.17 (4.6-6.2) 10^6/uL Hgb 14.9 D (14.0-18.0) g/dL Hct 45.6 (40.0-54.0) % MCV 88.2 (80-100) fL MCH 28.8 (27.0-34.0) pg MCHC 32.7 L (33.0-35.0) g/dL Plt Count 293 (150-450) 10^3/uL Neut % (Auto) 60.6 (42.2-75.2) % Lymph % (Auto) 19.1 L (20.5-50.1) % [place] % (Auto) 6.7 (2-8) % Eos % (Auto) 13.2 H (1.0-3.0) % Baso % (Auto) 0.4 (0.0-1.0) % PT 15.0 H D (9.0-12.0) SEC INR 1.5 H (0.9-1.2) Sodium 137 (135-145) mmol/L Potassium 4.1 (3.6-5.0) mmol/L Chloride 104 D (101-111) mmol/L Carbon Dioxide 23.0 (21.0-31.0) mmol/L Anion Gap 14.1 BUN 27 H (7-18) mg/dL Creatinine 1.1 (0.6-1.3) mg/dL Est Cr Clr Drug Dosing 88.48 mL/min Estimated GFR (MDRD) > 60 BUN/Creatinine Ratio 24.54 Glucose 224 H (74-105) mg/dL Calcium 8.8 (8.4-10.2) mg/dl Total Bilirubin 0.5 (0.2-1.0) mg/dL AST 17 (10-42) IU/L ALT 17 (10-60) IU/L Alkaline Phosphatase 52 (42-121) IU/L Total Protein 7.1 (6.7-8.2) g/dl Albumin 3.6 (3.2-5.5) g/dl Globulin 3.5 Albumin/Globulin Ratio 1.03 Departure - Departure Time of Disposition: 16:07 Disposition: Home, Self-Care 01 Condition: Fair Clinical Impression: Abscess of right buttock - Discharge Information *PRESCRIPTION DRUG MONITORING PROGRAM REVIEWED*: Not Applicable *COPY OF PRESCRIPTION DRUG MONITORING REPORT IN PATIENT MOMO: Not Applicable Instructions: Skin Abscess, [id number] Forms: ED Department Discharge Care Plan Goals: The patient was advised of the examination and lab results during the visit. The patient was discharged with a script for Clindamycin (300 mg) #40 to take 1 by mouth 4 times per day for 10 days. If the patient has any additional symptoms or concerns, the patient should either return to the emergency department or visit his primary care facility.
[2019-09-12 14:59] LABS: ANION GAP 14.1; CHLORIDE,CL 104 mmol/L (101-111); SODIUM,NA 137 mmol/L (135-145)
== END 2019-09-12 16:16 | disposition home or self-care (01) ==
LOC: DL.ED 13:32
DX: L02.31 Cutaneous abscess of buttock (principal); I10 Essential (primary) hypertension; E11.9 Type 2 diabetes mellitus without complications; F32.9 Major depressive disorder, single episode, unspecified; K21.9 Gastro-esophageal reflux disease without esophagitis; Z79.01 Long term (current) use of anticoagulants; Z79.84 Long term (current) use of oral hypoglycemic drugs; Z79.899 Other long term (current) drug therapy
CPT/HCPCS: 36415; 80053; 82272; 85025; 85610; 99283

== ENCOUNTER 2019-12-17 16:32 | Emergency (ER) | payer BC, OTHER ==
[2019-12-17 17:44] VITALS: BP 132/87; PULSE 94
--- NOTE | 2019-12-17 18:11 | EDM.PDOC ---
<Rc Villanueva - Last Filed: 12/17/19 18:06> ED HPI GENERAL MEDICAL PROBLEM - General Chief Complaint: Abdominal Pain Stated Complaint: PAIN IN STOMACH Time Seen by Provider: 12/17/19 18:06 Source of Information: Reports: Patient, RN, RN Notes Reviewed History Limitations: Reports: No Limitations - History of Present Illness INITIAL COMMENTS - FREE TEXT/NARRATIVE: 44 y.o M presents with L lower abdominal pain pain that radiates to the L groin area, on going but worsened today. Patient reports that pain is sharp that can radiate to the L lower back area. Patient denies urinary problems although gets up at least 4 times a night to void and states it is a full bladder with complete emptying. Patient has had multiple episodes of diarrhea over a 2 month period, but did say he had a normal bowel movement today. Tylenol this AM Onset: Gradual Duration: Week(s): (2 weeks) Location: Reports: Abdomen (LLQ) Quality: Reports: Ache, Sharp Severity: Mild Improves with: Reports: None Worsens with: Reports: None Associated Symptoms: Reports: Headaches. Denies: Chest Pain, Cough, Fever/ Chills, Loss of Appetite, Nausea/Vomiting, Shortness of Breath, Weakness Treatments CATEGORY SPECIALIST: Reports: Acetaminophen Left Groin Pain Score (Numeric/FACES): 1 - Related Data Allergies Allergy/AdvReac Type Severity Reaction Status Date / Time No Known Allergies Allergy Verified 12/17/19 17:45 Home Meds: Home Meds Omeprazole 20 mg PO DAILY 11/04/13 [History] Pramipexole [Mirapex] 0.25 mg PO BEDTIME 08/08/16 [History] clomiPHENE Citrate [Serophene] 25 mg PO DAILY 08/08/16 [History] Warfarin [Coumadin] 11 mg PO DAILY 04/14/17 [History] Lisinopril 5 mg PO DAILY 10/31/17 [History] glyBURIDE [Glyburide] 5 mg PO DAILY 10/31/17 [History] traZODone HCl [Trazodone HCl] 100 mg PO BEDTIME 10/31/17 [History] Liraglutide [Victoza] 1.2 mg SQ DAILY 09/12/19 [History] Past Medical History HEENT History: Reports: Impaired Vision Other HEENT History: wears corrective lenses Cardiovascular History: Reports: High Cholesterol, Hypertension Respiratory History: Reports: PE Other Respiratory History: "blood clots in the lung" Gastrointestinal History: Reports: GERD Genitourinary History: Reports: None Other Musculoskeletal History: carpal tunnel surgery right hand Neurological History: Reports: None Psychiatric History: Reports: Depression Endocrine/Metabolic History: Reports: Diabetes, Type II Hematologic History: Reports: Anticoagulation Therapy Immunologic History: Reports: None Oncologic (Cancer) History: Reports: None Dermatologic History: Reports: None - Infectious Disease History Infectious Disease History: Reports: None - Past Surgical History Head Surgeries/Procedures: Reports: None Other Musculoskeletal Surgeries/Procedures:: Foot surgery 2019 Social & Family History - Family History Family Medical History: Noncontributory Cardiac: Reports: CAD, Hypertension - Tobacco Use Smoking Status *Q: Never Smoker Second Hand Smoke Exposure: No - Caffeine Use Caffeine Use: Reports: Coffee - Recreational Drug Use Recreational Drug Use: No - Living Situation & Occupation Living situation: Reports: with Family Occupation: Employed ED ROS GENERAL - Review of Systems Review Of Systems: See Below Constitutional: Denies: Fever, Chills, Fatigue, Decreased Appetite HEENT: Reports: No Symptoms Respiratory: Reports: No Symptoms Cardiovascular: Reports: No Symptoms Endocrine: Reports: No Symptoms GI/Abdominal: Reports: Abdominal Pain (LLQ), Diarrhea. Denies: Bloody Stool, Decreased Appetite, Difficulty Swallowing, Nausea, Vomiting : Reports: Flank Pain, Other (nocturia 4-5 times per night). Denies: Dysuria , Frequency, Urgency Musculoskeletal: Reports: No Symptoms Skin: Reports: No Symptoms Neurological: Reports: Headache. Denies: Dizziness, Numbness, Syncope, Tingling Psychiatric: Reports: No Symptoms Hematologic/Lymphatic: Reports: No Symptoms Immunologic: Reports: No Symptoms ED EXAM, GI/ABD - Physical Exam Exam: See Below Exam Limited By: No Limitations General Appearance: Alert, WD/WN, No Apparent Distress Respiratory/Chest: No Respiratory Distress, Lungs Clear, Normal Breath Sounds, No Accessory Muscle Use, Chest Non-Tender Cardiovascular: Normal Peripheral Pulses, Regular Rate, Rhythm, No Edema, No Gallop, No JVD, No Murmur, No Rub GI/Abdominal Exam: Normal Bowel Sounds, Soft, No Distention, Tender (LLQ). No: Guarding, Rigid, Rebound (Male) Exam: Deferred Rectal (Males) Exam: Deferred Back Exam: Normal Inspection, Full Range of Motion, NT Extremities: Normal Inspection, Normal Range of Motion, Non-Tender, Normal Capillary Refill, No Pedal Edema Neurological: Alert, Oriented, CN II-XII Intact, Normal Cognition, Normal Gait, Normal Reflexes, No Motor/Sensory Deficits Psychiatric: Normal Affect, Normal Mood Skin Exam: Warm, Dry, Normal Color, Other (many sores on abdomen ) Lymphatic: No Adenopathy Course - Vital Signs Last Recorded V/S: Last Vital Signs Temp 98.1 F 12/17/19 17:39 Pulse 94 12/17/19 17:39 Resp 22 H 12/17/19 17:39 BP 132/87 12/17/19 17:39 Pulse Ox 94 L 12/17/19 17:39 - Orders/Labs/Meds Labs: Laboratory Tests 12/17/19 12/17/19 12/17/19 Range/Units 18:50 18:50 18:50 WBC 11.6 H (5.0-10.0) 10^3/uL RBC 5.02 (4.6-6.2) 10^6/uL Hgb 14.5 (14.0-18.0) g/dL Hct 44.7 (40.0-54.0) % MCV 89.0 (80-100) fL MCH 28.9 (27.0-34.0) pg MCHC 32.4 L (33.0-35.0) g/dL Plt Count 329 (150-450) 10^3/uL Neut % (Auto) 55.0 (42.2-75.2) % Lymph % (Auto) 31.4 (20.5-50.1) % [place] % (Auto) 9.7 H (2-8) % Eos % (Auto) 3.5 H (1.0-3.0) % Baso % (Auto) 0.4 (0.0-1.0) % Sodium 136 (135-145) mmol/L Potassium 3.7 (3.6-5.0) mmol/L Chloride 97 L (101-111) mmol/L Carbon Dioxide 30.0 (21.0-31.0) mmol/L Anion Gap 12.7 BUN 16 (7-18) mg/dL Creatinine 0.9 (0.6-1.3) mg/dL Est Cr Clr Drug Dosing 108.15 mL/min Estimated GFR (MDRD) > 60 BUN/Creatinine Ratio 17.77 Glucose 86 (74-105) mg/dL Calcium 9.0 (8.4-10.2) mg/dl Total Bilirubin 0.7 (0.2-1.0) mg/dL AST 16 (10-42) IU/L ALT 19 (10-60) IU/L Alkaline Phosphatase 55 (42-121) IU/L C-Reactive Protein 1.3 (0.0-1.3) mg/dL Total Protein 7.1 (6.7-8.2) g/dl Albumin 3.7 (3.2-5.5) g/dl Globulin 3.4 Albumin/Globulin Ratio 1.09 Urine Color (YELLOW) Urine Appearance (CLEAR) Urine pH (5.0-9.0) Ur Specific [place] (1.005-1.030) Urine Protein (NEGATIVE) Urine Glucose (UA) (NEGATIVE) Urine Ketones (NEGATIVE) Urine Occult Blood (NEGATIVE) Urine Nitrite (NEGATIVE) Urine Bilirubin (NEGATIVE) Urine Urobilinogen (0.2-1.0) mg/dL Ur Leukocyte Esterase (NEGATIVE) 12/17/19 Range/Units 20:03 WBC (5.0-10.0) 10^3/uL RBC (4.6-6.2) 10^6/uL Hgb (14.0-18.0) g/dL Hct (40.0-54.0) % MCV (80-100) fL MCH (27.0-34.0) pg MCHC (33.0-35.0) g/dL Plt Count (150-450) 10^3/uL Neut % (Auto) (42.2-75.2) % Lymph % (Auto) (20.5-50.1) % [place] % (Auto) (2-8) % Eos % (Auto) (1.0-3.0) % Baso % (Auto) (0.0-1.0) % Sodium (135-145) mmol/L Potassium (3.6-5.0) mmol/L Chloride (101-111) mmol/L Carbon Dioxide (21.0-31.0) mmol/L Anion Gap BUN (7-18) mg/dL Creatinine (0.6-1.3) mg/dL Est Cr Clr Drug Dosing mL/min Estimated GFR (MDRD) BUN/Creatinine Ratio Glucose (74-105) mg/dL Calcium (8.4-10.2) mg/dl Total Bilirubin (0.2-1.0) mg/dL AST (10-42) IU/L ALT (10-60) IU/L Alkaline Phosphatase (42-121) IU/L C-Reactive Protein (0.0-1.3) mg/dL Total Protein (6.7-8.2) g/dl Albumin (3.2-5.5) g/dl Globulin Albumin/Globulin Ratio Urine Color Yellow (YELLOW) Urine Appearance Clear (CLEAR) Urine pH 5.5 (5.0-9.0) Ur Specific [place] >= 1.030 (1.005-1.030) Urine Protein Negative (NEGATIVE) Urine Glucose (UA) Negative (NEGATIVE) Urine Ketones Negative (NEGATIVE) Urine Occult Blood Negative (NEGATIVE) Urine Nitrite Negative (NEGATIVE) Urine Bilirubin Negative (NEGATIVE) Urine Urobilinogen 0.2 (0.2-1.0) mg/dL Ur Leukocyte Esterase Negative (NEGATIVE) Meds: Medications Discontinued Medications Generic Name Dose Route Start Last Admin Trade Name Freq PRN Reason Stop Dose Admin Dicyclomine HCl 20 mg 12/17/19 22:09 12/17/19 22:16 Bentyl PO 12/17/19 22:10 20 mg ONETIME ONE Administration Iopamidol 100 ml 12/17/19 21:04 12/17/19 21:56 Isovue-300 (61%) IVPUSH 12/17/19 21:05 100 ml ONETIME ONE Administration Departure - Departure Disposition: Home, Self-Care 01 Clinical Impression: Bladder wall thickening, Mass of left adrenal gland Abdominal pain Qualifiers: Abdominal location: right lower quadrant Qualified Code(s): R10.31 - Right lower quadrant pain - Discharge Information Instructions: Abdominal Pain, Adult, [id number] Forms: ED Department Discharge Additional Instructions: Follow up with your primary care provider for further evaluation of findings on the recent CT scan, and consultation for GI referral Bowel rest when diarrhea is present, clear liquids and soft bland foods, advancing as tolerated May use imodium as directed over the counter for diarrhea Drink plenty of fluids Sepsis Event Note - Evaluation Sepsis Screening Result: No Definite Risk - Focused Exam Date Exam was Performed: 12/17/19 Time Exam was Performed: 18:06 <Inge Forbes - Last Filed: 12/17/19 22:15> Course - Orders/Labs/Meds Meds: Medications Discontinued Medications Generic Name Dose Route Start Last Admin Trade Name Freq PRN Reason Stop Dose Admin Dicyclomine HCl 20 mg 12/17/19 22:09 12/17/19 22:16 Bentyl PO 12/17/19 22:10 20 mg ONETIME ONE Administration Iopamidol 100 ml 12/17/19 21:04 12/17/19 21:56 Isovue-300 (61%) IVPUSH 12/17/19 21:05 100 ml ONETIME ONE Administration - Radiology Interpretation Free Text/Narrative:: Above chest xray for wrong chart. Xray Abdomen/Pelvis: FINDINGS: Gastrointestinal tract: No over distention of bowel loops is seen. Intraperitoneal space: The hemidiaphragms are mostly excluded and evaluation for free air is not optimal. No gross abnormalities seen. Bones/joints: The spine, sacroiliac joints, and hip joints are normal. IMPRESSION: No acute abnormality. Thank you for allowing us to participate in the care of your patient. Dictated and Authenticated by: Adalid Burnett MD 12/17/2019 7:47 PM Central Time ([place] & [place]) Abdomen/Pelvis CT with contrast: FINDINGS: Lungs: The visualized portions of the lung bases are normal. Heart: The visualized portions of the heart are unremarkable. Liver: There is a diffuse decrease in hepatic parenchymal density. Gallbladder and bile ducts: The gallbladder is normal. Pancreas: The pancreas is normal. Spleen: The spleen is normal. Adrenals: There is a 2.4 cm mass in the left adrenal gland. The density of this lesion does not allow definitive diagnosis of a benign adrenal adenoma on this enhanced examination. The size is quite similar to the prior study. Kidneys and ureters: The kidneys are normal. The ureters are normal. Stomach and bowel: The stomach is normal. Mild diverticulosis is present in the distal colon. Appendix: A normal appendix is identified. Intraperitoneal space: No evidence of intraperitoneal free air. Vasculature: The aorta is normal. Lymph nodes: No pathologic lymph node enlargement is demonstrated. Bladder: There is mild bladder wall thickening. Reproductive: The prostate and seminal vesicles are normal. Bones/joints: Unremarkable Soft tissues: The extra-abdominal soft tissues are normal. IMPRESSION: 1. Moderate fatty infiltration of the liver. 2. Indeterminate left adrenal mass. Definitive diagnosis of this adrenal lesion would require a noncontrast cross-sectional imaging study. The appearance is similar to the prior study. 3. Bladder wall thickening suggesting incomplete distention, chronic outflow obstruction or cystitis. See rad report Departure - Departure Time of Disposition: 22:15 Condition: Fair - Discharge Information *PRESCRIPTION DRUG MONITORING PROGRAM REVIEWED*: No *COPY OF PRESCRIPTION DRUG MONITORING REPORT IN PATIENT MOMO: No Sepsis Event Note - Focused Exam Date Exam was Performed: 12/17/19 Time Exam was Performed: 22:15 <Vu Mustafa - Last Filed: 12/18/19 07:44> Course - Orders/Labs/Meds Meds: Medications Discontinued Medications Generic Name Dose Route Start Last Admin Trade Name Freq PRN Reason Stop Dose Admin Dicyclomine HCl 20 mg 12/17/19 22:09 12/17/19 22:16 Bentyl PO 12/17/19 22:10 20 mg ONETIME ONE Administration Iopamidol 100 ml 12/17/19 21:04 12/17/19 21:56 Isovue-300 (61%) IVPUSH 12/17/19 21:05 100 ml ONETIME ONE Administration - Re-Assessments/Exams Free Text/Narrative Re-Assessment/Exam: 12/18/19 07:44 I personally performed or re-performed the physical examination and medical decision making. I have verified all student documentation or findings, including history, physical exam and/or medical decision making. Sepsis Event Note - Focused Exam Date Exam was Performed: 12/18/19 Time Exam was Performed: 07:43
[2019-12-17 19:07] LABS: ANION GAP 12.7; CHLORIDE,CL 97 mmol/L (101-111); SODIUM,NA 136 mmol/L (135-145)
[2019-12-17] MEDS ORDERED: Iopamidol 612 MG/ML 100 ML Bottle IVPUSH ONE (21:04)
[2019-12-17] MEDS ORDERED: Dicyclomine 10 MG Cap PO ONE (22:09)
== END 2019-12-17 22:21 | disposition home or self-care (01) ==
LOC: DL.ED 16:32
DX: N32.89 Other specified disorders of bladder (principal); E27.8 Other specified disorders of adrenal gland; K21.9 Gastro-esophageal reflux disease without esophagitis; I10 Essential (primary) hypertension; F32.9 Major depressive disorder, single episode, unspecified; E11.9 Type 2 diabetes mellitus without complications; Z79.899 Other long term (current) drug therapy; Z79.01 Long term (current) use of anticoagulants
CPT/HCPCS: 36415; 74019; 74177; 80053; 81003; 85025; 86140; 99284; A9270; Q9967

== ENCOUNTER 2020-08-17 18:32 | Emergency (ER) | payer BC, OTHER ==
[2020-08-17 19:07] VITALS: BP 126/78; PULSE 103
--- NOTE | 2020-08-17 19:11 | EDM.PDOC ---
ED HPI GENERAL MEDICAL PROBLEM - General Chief Complaint: Chest Pain Stated Complaint: PAIN IN SHOULDERS, OFF AND ON Time Seen by Provider: 08/17/20 19:05 Source of Information: Reports: Patient History Limitations: Reports: No Limitations - History of Present Illness INITIAL COMMENTS - FREE TEXT/NARRATIVE: This 45 yo male patient reports to the ED with chest pain (discomfort) and left shoulder pain. The patient reports he was eating dinner at about 1800 when he started to have left shoulder pain. The patient reports he got more concerned when he started to have diffuse chest pain. The patient reports he has been having similar chest pains over the past 2 weeks, but tonight it got worse. The patient does have a history of a PE (on Coumadin) and an elevated troponin leve l. The patient reports he was tested for COVID today (asymptomatic, but required by his employer). The patient reports a history of GERD and is taking omeprazole (takes it at night after he eats). The patient reports his provider was changing his medication to Pepcid. Onset: Today Onset Date: 08/17/20 Onset Time: 18:00 Duration: Improving Location: Reports: Chest, Upper Extremity, Left Quality: Reports: Ache, Dull Severity: Moderate Improves with: Reports: None Worsens with: Reports: None Context: Reports: Other Associated Symptoms: Reports: No Other Symptoms Left Chest Pain Score (Numeric/FACES): 3 - Related Data Allergies Allergy/AdvReac Type Severity Reaction Status Date / Time No Known Allergies Allergy Verified 08/17/20 19:14 Home Meds: Home Meds Omeprazole 20 mg PO DAILY 11/04/13 [History] Pramipexole [Mirapex] 0.25 mg PO BEDTIME 08/08/16 [History] clomiPHENE citrate [Serophene] 25 mg PO DAILY 08/08/16 [History] Warfarin [Coumadin] 11 mg PO DAILY 04/14/17 [History] Lisinopril 5 mg PO DAILY 10/31/17 [History] glyBURIDE [Glyburide] 5 mg PO DAILY 10/31/17 [History] traZODone HCl [Trazodone HCl] 100 mg PO BEDTIME 10/31/17 [History] Liraglutide [Victoza] 1.2 mg SQ DAILY 09/12/19 [History] Cholesterol Med 08/17/20 [History] Wellbutrin 08/17/20 [History] Past Medical History HEENT History: Reports: Impaired Vision Other HEENT History: wears corrective lenses Cardiovascular History: Reports: High Cholesterol, Hypertension Respiratory History: Reports: PE Other Respiratory History: "blood clots in the lung" Gastrointestinal History: Reports: GERD Genitourinary History: Reports: None Other Musculoskeletal History: carpal tunnel surgery right hand Neurological History: Reports: None Psychiatric History: Reports: Depression Endocrine/Metabolic History: Reports: Diabetes, Type II Hematologic History: Reports: Anticoagulation Therapy Immunologic History: Reports: None Oncologic (Cancer) History: Reports: None Dermatologic History: Reports: None - Infectious Disease History Infectious Disease History: Reports: None - Past Surgical History Head Surgeries/Procedures: Reports: None Other Musculoskeletal Surgeries/Procedures:: Foot surgery 2019 Social & Family History - Family History Family Medical History: Noncontributory Cardiac: Reports: CAD, Hypertension - Caffeine Use Caffeine Use: Reports: Coffee - Living Situation & Occupation Living situation: Reports: with Family Occupation: Employed ED ROS GENERAL - Review of Systems Review Of Systems: Comprehensive ROS is negative, except as noted in HPI. ED EXAM, GENERAL - Physical Exam Exam: See Below Exam Limited By: No Limitations General Appearance: Alert, WD/WN, Mild Distress, Obese Eye Exam: Bilateral Eye: EOMI, Normal Inspection, PERRL Ears: Normal External Exam, Normal Canal, Hearing Grossly Normal, Normal TMs Nose: Normal Inspection, Normal Mucosa, No Blood Throat/Mouth: Normal Inspection, Normal Lips, Normal Teeth, Normal Gums, Normal Oropharynx, Normal Voice, No Airway Compromise Head: Atraumatic, Normocephalic Neck: Normal Inspection, Supple, Non-Tender, Full Range of Motion Respiratory/Chest: No Respiratory Distress, Lungs Clear, Normal Breath Sounds, No Accessory Muscle Use, Chest Non-Tender Cardiovascular: Normal Peripheral Pulses, Regular Rate, Rhythm, No Edema, No Gallop, No JVD, No Murmur, No Rub GI/Abdominal: Normal Bowel Sounds, Soft, Non-Tender, No Organomegaly, No Distention, No Abnormal Bruit, No Mass, Other (morbid obesity) (Male) Exam: Deferred Rectal (Males) Exam: Deferred Back Exam: Normal Inspection, Full Range of Motion, NT Extremities: Normal Inspection, Normal Range of Motion, Non-Tender, Normal Capillary Refill, No Pedal Edema Neurological: Alert, Oriented, CN II-XII Intact, Normal Cognition, Normal Gait, Normal Reflexes, No Motor/Sensory Deficits Psychiatric: Normal Affect, Normal Mood Skin Exam: Warm, Dry, Intact, Normal Color, No Rash Lymphatic: No Adenopathy Course - Vital Signs Last Recorded V/S: Last Vital Signs Temp 37.8 C 08/17/20 18:41 Pulse 103 H 08/17/20 18:41 Resp 19 08/17/20 18:41 BP 126/78 08/17/20 18:41 Pulse Ox 95 08/17/20 18:41 - Orders/Labs/Meds Orders: Active Orders 24 hr Category Date Time Status EKG Documentation Completion [RC] STAT Care 08/17/20 19:03 Ordered CULTURE BLOOD [BC] Stat Lab 08/17/20 19:03 Ordered Labs: Laboratory Tests 08/17/20 08/17/20 08/17/20 Range/Units 19:13 19:13 19:13 WBC 9.2 (5.0-10.0) 10^3/uL RBC 4.97 (4.6-6.2) 10^6/uL Hgb 14.2 (14.0-18.0) g/dL Hct 43.3 (40.0-54.0) % MCV 87.1 (80-100) fL MCH 28.6 (27.0-34.0) pg MCHC 32.8 L (33.0-35.0) g/dL Plt Count 262 (150-450) 10^3/uL Neut % (Auto) 60.9 (42.2-75.2) % Lymph % (Auto) 20.7 (20.5-50.1) % [place] % (Auto) 9.6 H (2-8) % Eos % (Auto) 8.5 H (1.0-3.0) % Baso % (Auto) 0.3 (0.0-1.0) % D-Dimer, Quantitative (0-400) ng/mL Sodium 138 (136-145) mmol/L Potassium 3.8 (3.5-5.1) mmol/L Chloride 102 (98-107) mmol/L Carbon Dioxide 31 (21-32) mmol/L Anion Gap 8.8 (7-13) mEq/L BUN 16 (7-18) mg/dL Creatinine 0.91 (0.70-1.30) mg/dL Est Cr Clr Drug Dosing 105.85 mL/min Estimated GFR (MDRD) > 60 BUN/Creatinine Ratio 17.6 (No establ ref range) Glucose 90 (74-99) mg/dL Lactic Acid 0.9 (0.4-2.0) mmol/L Calcium 8.2 L (8.5-10.1) mg/dL Total Bilirubin 0.3 (0.2-1.0) mg/dL AST 13 L (15-37) U/L ALT 29 (16-63) U/L Alkaline Phosphatase 65 (46-116) U/L Troponin I < 0.017 (0.000-0.056) ng/mL Total Protein 6.8 (6.4-8.2) g/dL Albumin 3.2 L (3.4-5.0) g/dL Globulin 3.6 Albumin/Globulin Ratio 0.89 10/05/20 Range/Units 19:13 WBC (5.0-10.0) 10^3/uL RBC (4.6-6.2) 10^6/uL Hgb (14.0-18.0) g/dL Hct (40.0-54.0) % MCV (80-100) fL MCH (27.0-34.0) pg MCHC (33.0-35.0) g/dL Plt Count (150-450) 10^3/uL Neut % (Auto) (42.2-75.2) % Lymph % (Auto) (20.5-50.1) % [place] % (Auto) (2-8) % Eos % (Auto) (1.0-3.0) % Baso % (Auto) (0.0-1.0) % D-Dimer, Quantitative < 100 (0-400) ng/mL Sodium (136-145) mmol/L Potassium (3.5-5.1) mmol/L Chloride (98-107) mmol/L Carbon Dioxide (21-32) mmol/L Anion Gap (7-13) mEq/L BUN (7-18) mg/dL Creatinine (0.70-1.30) mg/dL Est Cr Clr Drug Dosing mL/min Estimated GFR (MDRD) BUN/Creatinine Ratio (No establ ref range) Glucose (74-99) mg/dL Lactic Acid (0.4-2.0) mmol/L Calcium (8.5-10.1) mg/dL Total Bilirubin (0.2-1.0) mg/dL AST (15-37) U/L ALT (16-63) U/L Alkaline Phosphatase (46-116) U/L Troponin I (0.000-0.056) ng/mL Total Protein (6.4-8.2) g/dL Albumin (3.4-5.0) g/dL Globulin Albumin/Globulin Ratio Departure - Departure Time of Disposition: 20:01 Disposition: Home, Self-Care 01 Condition: Fair Clinical Impression: GERD (gastroesophageal reflux disease) Qualifiers: Esophagitis presence: esophagitis presence not specified Qualified Code(s): K21.9 - Gastro-esophageal reflux disease without esophagitis Instructions: Gastroesophageal Reflux Disease, Adult, [id number], Food Choices for Gastroesophageal Reflux Disease, Adult, [id number] Forms: ED Department Discharge Care Plan Goals: The patient was advised of the examination, lab, x-ray and EKG results during the visit. The patient was encouraged to take his acid reflux medications as prescribed. If the patient has any additional symptoms or concerns, the patient should either return to the emergency department or visit his primary care facility. Sepsis Event Note (ED) - Focused Exam Vital Signs: Vital Signs Temp Pulse Resp BP Pulse Ox 08/17/20 18:41 37.8 C 103 H 19 126/78 95 - My Orders Last 24 Hours: My Active Orders 08/17/20 19:03 EKG Documentation Completion [RC] STAT CULTURE BLOOD [BC] Stat - Assessment/Plan Last 24 Hours: My Active Orders 08/17/20 19:03 EKG Documentation Completion [RC] STAT CULTURE BLOOD [BC] Stat
[2020-08-17 19:41] LABS: ANION GAP 8.8 mEq/L (7-13); CHLORIDE,CL 102 mmol/L (98-107); SODIUM,NA 138 mmol/L (136-145)
--- NOTE | 2020-08-17 19:49 | CR ---
PROCEDURE INFORMATION: Exam: XR Chest, 1 View Exam date and time: 08/17/2020 7:28 PM Age: 45 years old Clinical indication: Chest pain; Type not specified TECHNIQUE: Imaging protocol: XR of the chest Views: 1 view. COMPARISON: CR Chest 2V 08/26/2016 1:18 PM FINDINGS: Lungs: Focal airspace opacity is present within the right lower lobe. This could represent atelectasis, aspiration or pneumonia. Pleural space: Unremarkable. No pleural effusion. No pneumothorax. Heart/Mediastinum: Unremarkable. No cardiomegaly. Bones/joints: Unremarkable. IMPRESSION: 1. Atelectasis, aspiration or pneumonia in the right lower lobe.
== END 2020-08-17 20:07 | disposition home or self-care (01) ==
LOC: DL.ED 18:32
DX: K21.9 Gastro-esophageal reflux disease without esophagitis (principal); I10 Essential (primary) hypertension; E11.9 Type 2 diabetes mellitus without complications; F32.9 Major depressive disorder, single episode, unspecified; Z79.84 Long term (current) use of oral hypoglycemic drugs; Z79.899 Other long term (current) drug therapy; Z86.711 Personal history of pulmonary embolism; Z79.01 Long term (current) use of anticoagulants
CPT/HCPCS: 36415; 71045; 80053; 83605; 84484; 85025; 85379; 87040; 93005; 99283; 99285-25

== ENCOUNTER 2020-10-14 16:04 | Emergency (ER) | payer OTHER ==
--- NOTE | 2020-10-14 18:56 | EDM.PDOC ---
ED HPI GENERAL MEDICAL PROBLEM - General Chief Complaint: Upper Extremity Injury/Pain Stated Complaint: FELL AND HURT WRIST Time Seen by Provider: 10/14/20 18:45 Source of Information: Reports: Patient History Limitations: Reports: No Limitations - History of Present Illness INITIAL COMMENTS - FREE TEXT/NARRATIVE: fell this am leaving house, pain right wrist , base of thumb bruised swelling. No other injury. 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 - Related Data Allergies Allergy/AdvReac Type Severity Reaction Status Date / Time No Known Allergies Allergy Verified 08/17/20 19:14 Home Meds: Home Meds Omeprazole 20 mg PO DAILY 11/04/13 [History] Pramipexole [Mirapex] 0.25 mg PO BEDTIME 08/08/16 [History] clomiPHENE citrate [Serophene] 25 mg PO DAILY 08/08/16 [History] Warfarin [Coumadin] 11 mg PO DAILY 04/14/17 [History] Lisinopril 5 mg PO DAILY 10/31/17 [History] glyBURIDE [Glyburide] 5 mg PO DAILY 10/31/17 [History] traZODone HCl [Trazodone HCl] 100 mg PO BEDTIME 10/31/17 [History] Liraglutide [Victoza] 1.2 mg SQ DAILY 09/12/19 [History] Cholesterol Med 08/17/20 [History] Wellbutrin 08/17/20 [History] Past Medical History HEENT History: Reports: Impaired Vision Other HEENT History: wears corrective lenses Cardiovascular History: Reports: High Cholesterol, Hypertension Respiratory History: Reports: PE Other Respiratory History: "blood clots in the lung" Gastrointestinal History: Reports: GERD Genitourinary History: Reports: None Other Musculoskeletal History: carpal tunnel surgery right hand Neurological History: Reports: None Psychiatric History: Reports: Depression Endocrine/Metabolic History: Reports: Diabetes, Type II Hematologic History: Reports: Anticoagulation Therapy Immunologic History: Reports: None Oncologic (Cancer) History: Reports: None Dermatologic History: Reports: None - Infectious Disease History Infectious Disease History: Reports: None - Past Surgical History Head Surgeries/Procedures: Reports: None Other Musculoskeletal Surgeries/Procedures:: Foot surgery 2019 Social & Family History - Family History Family Medical History: No Pertinent Family History Cardiac: Reports: CAD, Hypertension - Caffeine Use Caffeine Use: Reports: Coffee - Living Situation & Occupation Living situation: Reports: with Family Occupation: Employed Review of Systems - Review of Systems Review Of Systems: Comprehensive ROS is negative, except as noted in HPI. ED EXAM, GENERAL - Physical Exam Exam: See Below Exam Limited By: No Limitations General Appearance: Alert, Mild Distress, Obese Ears: Normal External Exam, Hearing Grossly Normal Throat/Mouth: Normal Voice Head: Atraumatic, Normocephalic Neck: Normal Inspection Respiratory/Chest: No Respiratory Distress Cardiovascular: Normal Peripheral Pulses, Regular Rate, Rhythm Extremities: Limited Range of Motion (mild pain with flexion extension right wrist mild swelling no gross deformity) Neurological: Alert, Oriented, Normal Cognition Psychiatric: Normal Affect, Normal Mood Skin Exam: Warm, Dry, Intact, Ecchymosis (base left thumb) ED TRAUMA EXTREMITY PROCEDURES - Splinting Right Upper Extremity Pre-Procedure NV Status: Normal Post-Procedure NV Status: Normal Splint Material: Velcro (wrist splint) Applied & Form Fitted By: Provider Provider Post-Splint Application NV Check: NV Status Normal Complications: No Departure - Departure Time of Disposition: 18:54 Disposition: Home, Self-Care 01 Condition: Good Clinical Impression: Sprain of right wrist Qualifiers: Encounter type: initial encounter Qualified Code(s): S63.501A - Unspecified sprain of right wrist, initial encounter - Discharge Information *PRESCRIPTION DRUG MONITORING PROGRAM REVIEWED*: No *COPY OF PRESCRIPTION DRUG MONITORING REPORT IN PATIENT MOMO: No Instructions: Wrist Sprain, Adult Referrals: Kevin Martinez MD [Primary Care Provider] - Forms: ED Department Discharge Additional Instructions: elevate, ice splint for comfort tylenol 650mg every 4 hours as needed for discomfort, clinic recheck next week if still having pain
--- NOTE | 2020-10-14 19:51 | CR ---
EXAMINATION: Wrist Comp Min 3V Rt SEX: Male AGE: 45 years CLINICAL HISTORY: 45-year-old male injured in fall (injured wrist this a.m.) Interpretation: 1. *Unusually prominent spacing between the carpal navicular and lunate bones (proximal row) suggesting ligamentous injury. Recommend considering unenhanced MRI wrist. 2. 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 3. Soft tissue swelling but no sign of acute fracture or other dislocation. 4. Metacarpal bones right hand unremarkable. 5. No foreign bodies.
== END 2020-10-14 19:06 | disposition home or self-care (01) ==
LOC: DL.ED 16:04
DX: S63.501A Unspecified sprain of right wrist, initial encounter (principal); S60.222A Contusion of left hand, initial encounter; I10 Essential (primary) hypertension; E78.00 Pure hypercholesterolemia, unspecified; K21.9 Gastro-esophageal reflux disease without esophagitis; E11.9 Type 2 diabetes mellitus without complications; Z79.01 Long term (current) use of anticoagulants; Z79.899 Other long term (current) drug therapy; W19.XXXA Unspecified fall, initial encounter
CPT/HCPCS: 73110-RT; 99283-25

== ENCOUNTER 2021-01-03 09:00 | Emergency (ER) | payer OTHER ==
[2021-01-03 09:17] VITALS: BP 102/55; PULSE 111
[2021-01-03 09:54] LABS: CORONAVIRUS COVID-19 NAA NEGATIVE (NEGATIVE)
[2021-01-03 09:59] LABS: CHLORIDE,CL 93 mmol/L (98-107); SODIUM,NA 130 mmol/L (136-145)
--- NOTE | 2021-01-03 10:04 | EDM.PDOC ---
ED HPI GENERAL MEDICAL PROBLEM - General Chief Complaint: General Stated Complaint: FEVER,BODY HURTS,FATIGUE Time Seen by Provider: 01/03/21 09:50 Source of Information: Reports: Patient History Limitations: Reports: No Limitations - History of Present Illness INITIAL COMMENTS - FREE TEXT/NARRATIVE: This 45 yo male patient reports to the ED with increased shortness of breath, a fever and cough. The patient reports his symptoms started last night and have been getting worse. The patient reports he has a remote history of blood clots in his lungs. The patient reports he has not taken anything for his current symptoms. The patient does work at a local correction. When he went to work this morning, the patient had a rapid COVID test (negative) and they sent another COVID test [facility]. The patient reports increased shortness of breath with exertion. Onset Date: 01/02/21 Duration: Constant, Getting Worse Location: Reports: Chest Quality: Reports: Other Severity: Moderate Improves with: Reports: None Worsens with: Reports: None Context: Reports: Other Associated Symptoms: Reports: Shortness of Breath - Related Data Allergies Allergy/AdvReac Type Severity Reaction Status Date / Time No Known Allergies Allergy Verified 01/03/21 09:17 Home Meds: Home Meds Omeprazole 20 mg PO DAILY 11/04/13 [History] Pramipexole [Mirapex] 0.25 mg PO BEDTIME 08/08/16 [History] clomiPHENE citrate [Serophene] 25 mg PO DAILY 08/08/16 [History] Warfarin [Coumadin] 11 mg PO DAILY 04/14/17 [History] Lisinopril 5 mg PO DAILY 10/31/17 [History] glyBURIDE [Glyburide] 5 mg PO DAILY 10/31/17 [History] traZODone HCl [Trazodone HCl] 100 mg PO BEDTIME 10/31/17 [History] Liraglutide [Victoza] 1.2 mg SQ DAILY 09/12/19 [History] Cholesterol Med 08/17/20 [History] Wellbutrin 08/17/20 [History] Past Medical History HEENT History: Reports: Impaired Vision Other HEENT History: wears corrective lenses Cardiovascular History: Reports: High Cholesterol, Hypertension Respiratory History: Reports: PE Other Respiratory History: "blood clots in the lung" Gastrointestinal History: Reports: GERD Genitourinary History: Reports: None Other Musculoskeletal History: carpal tunnel surgery right hand Neurological History: Reports: None Psychiatric History: Reports: Depression Endocrine/Metabolic History: Reports: Diabetes, Type II Hematologic History: Reports: Anticoagulation Therapy Immunologic History: Reports: None Oncologic (Cancer) History: Reports: None Dermatologic History: Reports: None - Infectious Disease History Infectious Disease History: Reports: None - Past Surgical History Head Surgeries/Procedures: Reports: None HEENT Surgical History: Reports: None Cardiovascular Surgical History: Reports: None Respiratory Surgical History: Reports: Other (See Below) Other Respiratory Surgeries/Procedures: embolectomy Other Musculoskeletal Surgeries/Procedures:: Foot surgery 2019 Social & Family History - Family History Family Medical History: No Pertinent Family History Cardiac: Reports: CAD, Hypertension - Tobacco Use Tobacco Use Status *Q: Never Tobacco User - Caffeine Use Caffeine Use: Reports: Coffee - Recreational Drug Use Recreational Drug Use: No - Living Situation & Occupation Living situation: Reports: with Family Occupation: Employed ED ROS GENERAL - Review of Systems Review Of Systems: Comprehensive ROS is negative, except as noted in HPI. ED EXAM, GENERAL - Physical Exam Exam: See Below Exam Limited By: No Limitations General Appearance: Alert, WD/WN, Moderate Distress Eye Exam: Bilateral Eye: EOMI, Normal Inspection, PERRL Ears: Normal External Exam, Normal Canal, Hearing Grossly Normal, Normal TMs Nose: Normal Inspection, Normal Mucosa, No Blood Throat/Mouth: Normal Lips, Normal Teeth, Normal Gums, Normal Voice, Other (dry) Head: Atraumatic, Normocephalic Neck: Normal Inspection, Supple, Non-Tender, Full Range of Motion Respiratory/Chest: Decreased Breath Sounds (diffuse) Cardiovascular: Normal Peripheral Pulses, Regular Rate, Rhythm, No Edema, No Gallop, No JVD, No Murmur, No Rub GI/Abdominal: Normal Bowel Sounds, Soft, Non-Tender, No Organomegaly, No Distention, No Abnormal Bruit, No Mass (Male) Exam: Deferred Rectal (Males) Exam: Deferred Back Exam: Normal Inspection, Full Range of Motion, NT Extremities: Normal Inspection, Normal Range of Motion, Non-Tender, Normal Capillary Refill, No Pedal Edema Neurological: Alert, Oriented, CN II-XII Intact, Normal Cognition, Normal Gait, Normal Reflexes, No Motor/Sensory Deficits Psychiatric: Normal Affect, Normal Mood Skin Exam: Warm, Dry, Intact, Normal Color, No Rash Lymphatic: No Adenopathy Course - Vital Signs Last Recorded V/S: Last Vital Signs Temp 37.9 C 01/03/21 09:15 Pulse 111 H 01/03/21 09:15 Resp 20 01/03/21 09:15 BP 102/55 L 01/03/21 09:15 Pulse Ox 92 L 01/03/21 09:15 - Orders/Labs/Meds Orders: Active Orders 24 hr Category Date Time Status EKG Documentation Completion [RC] STAT Care 01/03/21 09:13 Ordered CULTURE BLOOD [BC] Stat Lab 01/03/21 09:13 Ordered CULTURE STREP A CONFIRMATION [] Stat Lab 01/03/21 09:19 Results STREP SCRN A RAPID W CULT CONF [] Stat Lab 01/03/21 09:14 Ordered cefTRIAXone [Rocephin] 1 gm Med 01/03/21 12:13 Ordered Sodium Chloride 0.9% [Normal Saline] 50 ml IV ONETIME Medication Orders Ceftriaxone Sodium 1 gm/ (Sodium Chloride) 50 mls @ 100 mls/hr IV ONETIME ONE Stop: 01/03/21 12:42 Labs: Laboratory Tests 01/03/21 01/03/21 01/03/21 Range/Units 09:04 09:23 09:23 WBC 20.6 H (5.0-10.0) 10^3/uL RBC 4.63 (4.6-6.2) 10^6/uL Hgb 13.6 L (14.0-18.0) g/dL Hct 41.1 (40.0-54.0) % MCV 88.8 (80-100) fL MCH 29.4 (27.0-34.0) pg MCHC 33.1 (33.0-35.0) g/dL Plt Count 230 (150-450) 10^3/uL Neut % (Auto) 91.0 H (42.2-75.2) % Lymph % (Auto) 5.9 L (20.5-50.1) % [place] % (Auto) 3.0 (2-8) % Eos % (Auto) 0.0 L (1.0-3.0) % Baso % (Auto) 0.1 (0.0-1.0) % PT (9.0-12.0) SEC INR (0.9-1.2) D-Dimer, Quantitative (0-400) ng/mL Sodium 130 L (136-145) mmol/L Potassium 4.0 (3.5-5.1) mmol/L Chloride 93 L (98-107) mmol/L Carbon Dioxide 29 (21-32) mmol/L Anion Gap 12.0 (7-13) mEq/L BUN 16 (7-18) mg/dL Creatinine 1.00 (0.70-1.30) mg/dL Est Cr Clr Drug Dosing 96.32 mL/min Estimated GFR (MDRD) > 60 BUN/Creatinine Ratio 16.0 (No establ ref range) Glucose 125 H (74-99) mg/dL Lactic Acid (0.4-2.0) mmol/L Calcium 8.5 (8.5-10.1) mg/dL Total Bilirubin 0.6 (0.2-1.0) mg/dL AST 141 H (15-37) U/L ALT 69 H (16-63) U/L Alkaline Phosphatase 50 (46-116) U/L Troponin I < 0.017 (0.000-0.056) ng/mL Total Protein 7.0 (6.4-8.2) g/dL Albumin 2.8 L (3.4-5.0) g/dL Globulin 4.2 Albumin/Globulin Ratio 0.67 Influenza Type A RNA Negative (NEGATIVE) Influenza Type B RNA Negative (NEGATIVE) SARS-CoV-2 RNA (SHERLY) Negative (NEGATIVE) 01/03/21 01/03/21 01/03/21 Range/Units 09:23 09:23 09:23 WBC (5.0-10.0) 10^3/uL RBC (4.6-6.2) 10^6/uL Hgb (14.0-18.0) g/dL Hct (40.0-54.0) % MCV (80-100) fL MCH (27.0-34.0) pg MCHC (33.0-35.0) g/dL Plt Count (150-450) 10^3/uL Neut % (Auto) (42.2-75.2) % Lymph % (Auto) (20.5-50.1) % [place] % (Auto) (2-8) % Eos % (Auto) (1.0-3.0) % Baso % (Auto) (0.0-1.0) % PT 15.1 H (9.0-12.0) SEC INR 1.6 H (0.9-1.2) D-Dimer, Quantitative 539 H (0-400) ng/mL Sodium (136-145) mmol/L Potassium (3.5-5.1) mmol/L Chloride (98-107) mmol/L Carbon Dioxide (21-32) mmol/L Anion Gap (7-13) mEq/L BUN (7-18) mg/dL Creatinine (0.70-1.30) mg/dL Est Cr Clr Drug Dosing mL/min Estimated GFR (MDRD) BUN/Creatinine Ratio (No establ ref range) Glucose (74-99) mg/dL Lactic Acid 0.8 (0.4-2.0) mmol/L Calcium (8.5-10.1) mg/dL Total Bilirubin (0.2-1.0) mg/dL AST (15-37) U/L ALT (16-63) U/L Alkaline Phosphatase (46-116) U/L Troponin I (0.000-0.056) ng/mL Total Protein (6.4-8.2) g/dL Albumin (3.4-5.0) g/dL Globulin Albumin/Globulin Ratio Influenza Type A RNA (NEGATIVE) Influenza Type B RNA (NEGATIVE) SARS-CoV-2 RNA (SHERLY) (NEGATIVE) Meds: Medications Generic Name Dose Route Start Last Admin Trade Name Freq PRN Reason Stop Dose Admin Ceftriaxone Sodium 1 gm/ 50 mls @ 100 mls/hr 01/03/21 12:13 Sodium Chloride IV 01/03/21 12:42 ONETIME ONE Discontinued Medications Generic Name Dose Route Start Last Admin Trade Name Freq PRN Reason Stop Dose Admin Iopamidol 100 ml 01/03/21 10:44 01/03/21 11:39 Isovue-370 (76%) IVPUSH 01/03/21 10:45 78 ml ONETIME ONE Administration Departure - Departure Time of Disposition: 12:15 Disposition: Home, Self-Care 01 Condition: Fair Clinical Impression: Bronchitis - Discharge Information *PRESCRIPTION DRUG MONITORING PROGRAM REVIEWED*: Not Applicable *COPY OF PRESCRIPTION DRUG MONITORING REPORT IN PATIENT MOMO: Not Applicable Instructions: Acute Bronchitis, Adult, [id number] Forms: ED Department Discharge Care Plan Goals: The patient was advised of the examination, lab, EKG, x-ray and CT (limited as reported) results during the visit. The patient was given an IV dose of Rocephin while in the ED. The patient was discharged with a script for Azithromycin (250 mg) #6 to take 2 by mouth on day 1 (today) and 1 by mouth for the next 4 days. The patient was advised to continue to take his current medications as prescribed. If the patient has any additional symptoms or concerns, the patient should either return to the emergency department or visit his primary care facility. Sepsis Event Note (ED) - Evaluation Sepsis Screening Result: Possible Sepsis Risk - Focused Exam Vital Signs: Vital Signs Temp Pulse Resp BP Pulse Ox 01/03/21 09:15 37.9 C 111 H 20 102/55 L 92 L - My Orders Last 24 Hours: My Active Orders 01/03/21 09:13 EKG Documentation Completion [RC] STAT CULTURE BLOOD [BC] Stat 01/03/21 09:14 STREP SCRN A RAPID W CULT CONF [RM] Stat 01/03/21 09:19 CULTURE STREP A CONFIRMATION [RM] Stat 01/03/21 12:13 cefTRIAXone [Rocephin] 1 gm Sodium Chloride 0.9% [Normal Saline] 50 ml IV ON ETIME - Assessment/Plan Last 24 Hours: My Active Orders 01/03/21 09:13 EKG Documentation Completion [RC] STAT CULTURE BLOOD [BC] Stat 01/03/21 09:14 STREP SCRN A RAPID W CULT CONF [RM] Stat 01/03/21 09:19 CULTURE STREP A CONFIRMATION [RM] Stat 01/03/21 12:13 cefTRIAXone [Rocephin] 1 gm Sodium Chloride 0.9% [Normal Saline] 50 ml IV ONETIME
--- NOTE | 2021-01-03 10:40 | CR ---
PROCEDURE INFORMATION: Exam: XR Chest, 2 Views Exam date and time: 01/03/2021 10:01 AM Age: 45 years old Clinical indication: Shortness of breath; Additional info: Short of breath TECHNIQUE: Imaging protocol: XR of the chest Views: 2 views. COMPARISON: CR Chest 1V Frontal 08/17/2020 7:28 PM FINDINGS: Lungs: Unremarkable. No consolidation. Pleural spaces: Unremarkable. No pleural effusion. No pneumothorax. Heart/Mediastinum: Unremarkable. No cardiomegaly. Bones/joints: Unremarkable. IMPRESSION: No acute findings.
[2021-01-03] MEDS ORDERED: Iopamidol 755 Mg/ML 100 ML Bottle IVPUSH ONE (10:44)
--- NOTE | 2021-01-03 12:06 | CT ---
PROCEDURE INFORMATION: Exam: CT Chest With Contrast; Diagnostic Exam date and time: 01/03/2021 11:05 AM Age: 45 years old Clinical indication: Shortness of breath; Additional info: Short of breath (d-dimer 537) TECHNIQUE: Imaging protocol: Diagnostic computed tomography of the chest with contrast. Radiation optimization: All CT scans at this facility use at least one of these dose optimization techniques: automated exposure control; mA and/or kV adjustment per patient size (includes targeted exams where dose is matched to clinical indication); or iterative reconstruction. Contrast material: ISOVUE 370; Contrast volume: 78 ml; Contrast route: INTRAVENOUS (IV); COMPARISON: CT Chest w Cont 05/06/2015 3:17 PM FINDINGS: Lungs: Dependent atelectasis in the posterior lungs, left worse than right. Pleural spaces: Unremarkable. No pneumothorax. No pleural effusion. Heart: Unremarkable. No cardiomegaly. No pericardial effusion. Pulmonary arteries: Suboptimal opacification of the pulmonary arteries. This limits diagnostic evaluation for pulmonary emboli. There is artifact from the dense bolus of contrast in the lower SVC and azygos vein that compromises visualization of the right upper lobe segmental pulmonary artery. In this right upper lobe segmental branch and proximal subsegmental branches there are vague filling defects that could be pulmonary emboli. On the previous CT of 05/06/2015, there were bulky bilateral pulmonary emboli including in the right upper lobe and some of what is seen today could be chronic PE but given the limitations in technique from the bolus of contrast on today's CT acute emboli cannot definitely be excluded. Aorta: Unremarkable. No aortic aneurysm. Lymph nodes: Unremarkable. No enlarged lymph nodes. Liver: Fatty liver with a cirrhotic configuration. Bones/joints: Anterior endplate osteophyte formation lower thoracic spine. Adrenal: 2.8 cm low-density lesion in the left adrenal gland partially visualized. This was described on a report from a CT scan of 12/17/2019 measuring 2.4 cm. Images from that exam are not available for review. Consider dedicated adrenal CT or MRI. IMPRESSION: 1. Exam limited by suboptimal opacification pulmonary arteries. 2. Possible acute or chronic pulmonary emboli in subsegmental and proximal subsegmental branches the right upper lobe. 3. 2.8 cm indeterminate partially visualized left adrenal mass. Consider dedicated MRI or CT of the adrenal glands.
[2021-01-03] MEDS ORDERED: cefTRIAXone 1 GM in Sodium Chloride 0.9% 50 ML IV ONE (12:13)
== END 2021-01-03 13:08 | disposition home or self-care (01) ==
LOC: DL.ED 09:00
DX: J40 Bronchitis, not specified as acute or chronic (principal); K21.9 Gastro-esophageal reflux disease without esophagitis; E11.9 Type 2 diabetes mellitus without complications; Z20.822 Contact with and (suspected) exposure to COVID-19; Z79.01 Long term (current) use of anticoagulants; Z79.84 Long term (current) use of oral hypoglycemic drugs; Z86.711 Personal history of pulmonary embolism; Z79.899 Other long term (current) drug therapy
CPT/HCPCS: 0240U; 36415; 71046; 71260; 80053; 83605; 84484; 85025; 85379; 85610; 87040; 87081; 87430; 93005; 96365; 99285; J0696; Q9967; 99284

== ENCOUNTER 2021-01-08 09:35 | Emergency (ER) | payer OTHER ==
[2021-01-08 09:49] VITALS: BP 114/53; PULSE 86
--- NOTE | 2021-01-08 10:31 | EDM.PDOC ---
ED HPI GENERAL MEDICAL PROBLEM - General Chief Complaint: General Stated Complaint: LEG INFECTION, SHORTNESS OF BREATHE, DIZINESS, Time Seen by Provider: 01/08/21 10:00 Source of Information: Reports: Patient History Limitations: Reports: No Limitations - History of Present Illness INITIAL COMMENTS - FREE TEXT/NARRATIVE: This 45 yo male patient reports to the ED with an infection to his left lower extremity and shortness of breath. The patient report his left lower extremity is the area of the most concern at this time. The patient was seen for shortness of breath 5 days ago and for an infection in his leg 4 days ago. The patient reports he has been taking the antibiotics as prescribed, but has noticed the swelling, redness and pain in his left lower extremity has been getting worse. The patient does have a history of blood clots (Pulmonary) several years ago. The patient has been taking Clindamycin (300 mg) 1 by mouth 3 times per day since Monday (4 days). Onset Date: 01/04/21 Duration: Constant, Getting Worse Location: Reports: Lower Extremity, Left Quality: Reports: Ache, Dull Severity: Moderate Improves with: Reports: None Worsens with: Reports: None Context: Reports: Other Associated Symptoms: Reports: No Other Symptoms Headache Pain Score (Numeric/FACES): 2 - Related Data Allergies Allergy/AdvReac Type Severity Reaction Status Date / Time No Known Allergies Allergy Verified 01/08/21 09:49 Home Meds: Home Meds Omeprazole 20 mg PO DAILY 11/04/13 [History] Pramipexole [Mirapex] 0.25 mg PO BEDTIME 08/08/16 [History] clomiPHENE citrate [Serophene] 25 mg PO DAILY 08/08/16 [History] Warfarin [Coumadin] 11 mg PO DAILY 04/14/17 [History] Lisinopril 5 mg PO DAILY 10/31/17 [History] glyBURIDE [Glyburide] 5 mg PO DAILY 10/31/17 [History] traZODone HCl [Trazodone HCl] 200 mg PO BEDTIME 10/31/17 [History] Liraglutide [Victoza] 1.2 mg SQ DAILY 09/12/19 [History] buPROPion HCL [Bupropion Xl] 300 mg PO DAILY 01/08/21 [History] Past Medical History HEENT History: Reports: Impaired Vision Other HEENT History: wears corrective lenses Cardiovascular History: Reports: High Cholesterol, Hypertension Respiratory History: Reports: PE Other Respiratory History: "blood clots in the lung" Gastrointestinal History: Reports: GERD Genitourinary History: Reports: None Other Musculoskeletal History: carpal tunnel surgery right hand Neurological History: Reports: None Psychiatric History: Reports: Depression Endocrine/Metabolic History: Reports: Diabetes, Type II Hematologic History: Reports: Anticoagulation Therapy Immunologic History: Reports: None Oncologic (Cancer) History: Reports: None Dermatologic History: Reports: None - Infectious Disease History Infectious Disease History: Reports: None - Past Surgical History Head Surgeries/Procedures: Reports: None HEENT Surgical History: Reports: None Cardiovascular Surgical History: Reports: None Respiratory Surgical History: Reports: Other (See Below) Other Respiratory Surgeries/Procedures: embolectomy Other Musculoskeletal Surgeries/Procedures:: Foot surgery 2019 Social & Family History - Family History Family Medical History: No Pertinent Family History Cardiac: Reports: CAD, Hypertension - Caffeine Use Caffeine Use: Reports: Coffee - Recreational Drug Use Recreational Drug Use: No - Living Situation & Occupation Living situation: Reports: with Family Occupation: Employed ED ROS GENERAL - Review of Systems Review Of Systems: Comprehensive ROS is negative, except as noted in HPI. ED EXAM, GENERAL - Physical Exam Exam: See Below Exam Limited By: No Limitations General Appearance: Alert, WD/WN, Moderate Distress, Obese Eye Exam: Bilateral Eye: EOMI, Normal Inspection, PERRL Ears: Normal External Exam, Normal Canal, Hearing Grossly Normal, Normal TMs Throat/Mouth: Normal Inspection, Normal Lips, Normal Teeth, Normal Gums, Normal Oropharynx, Normal Voice, No Airway Compromise Head: Atraumatic, Normocephalic Neck: Normal Inspection, Supple, Non-Tender, Full Range of Motion Respiratory/Chest: No Respiratory Distress, No Accessory Muscle Use, Chest Non- Tender, Decreased Breath Sounds Cardiovascular: Normal Peripheral Pulses, Regular Rate, Rhythm, No Edema, No Gallop, No JVD, No Murmur, No Rub GI/Abdominal: Normal Bowel Sounds, Soft, Non-Tender, No Organomegaly, No Distention, No Abnormal Bruit, No Mass, Other (obese) (Male) Exam: Deferred Rectal (Males) Exam: Deferred Back Exam: Normal Inspection, Full Range of Motion, NT Extremities: Leg Pain (left lower leg), Increased Warmth, Redness Neurological: Alert, Oriented, CN II-XII Intact, Normal Cognition, Normal Reflexes Psychiatric: Normal Affect, Normal Mood Skin Exam: Erythema (left lower leg extending to the top of calf (below the knee)), Increased Warmth, Other (There is a small amount of purulent drainage from the posterior left lower extremity. ) Course - Vital Signs Last Recorded V/S: Last Vital Signs Temp 36.3 C 01/08/21 09:46 Pulse 86 01/08/21 09:46 Resp 20 01/08/21 09:46 BP 114/53 L 01/08/21 09:46 Pulse Ox 95 01/08/21 09:46 - Orders/Labs/Meds Orders: Active Orders 24 hr Category Date Time Status CULTURE BLOOD [BC] Stat Lab 01/08/21 10:06 Received CULTURE BLOOD [BC] Stat Lab 01/08/21 10:15 Received CULTURE WOUND [RM] Stat Lab 01/08/21 09:54 Received Vancomycin/Water For INJ (PEG) [Vancomycin in Water 1. Med 01/08/21 11:00 Active 75 GM/350 ML] 1.75 gm Premix Bag 1 bag IV ONETIME Blood Culture x2 Reflex Set [OM.PC] Stat Oth 01/08/21 09:55 Ordered Medication Orders Vancomycin HCl 1.75 gm/ Premix 350 mls @ 200 mls/hr IV ONETIME ONE Stop: 01/08/21 12:44 Last Admin: 01/08/21 10:55 Dose: 200 mls/hr Documented by: SAMIR Labs: Laboratory Tests 01/08/21 01/08/21 01/08/21 Range/Units 10:06 10:06 10:06 WBC 12.9 H (5.0-10.0) 10^3/uL RBC 4.08 L (4.6-6.2) 10^6/uL Hgb 11.9 L D (14.0-18.0) g/dL Hct 36.9 L (40.0-54.0) % MCV 90.4 (80-100) fL MCH 29.2 (27.0-34.0) pg MCHC 32.2 L (33.0-35.0) g/dL Plt Count 333 D (150-450) 10^3/uL Neut % (Auto) 67.6 (42.2-75.2) % Lymph % (Auto) 21.2 (20.5-50.1) % Scurry % (Auto) 8.0 (2-8) % Eos % (Auto) 2.9 (1.0-3.0) % Baso % (Auto) 0.3 (0.0-1.0) % Add Manual Diff Yes Neutrophils % (Manual) 55 (42-75) % Band Neutrophils % 3 % Lymphocytes % (Manual) 22 (20-50) % Monocytes % (Manual) 10 H (2-8) % Eosinophils % (Manual) 8 H (1-3) % Metamyelocytes % 2 Sodium 137 (136-145) mmol/L Potassium 4.3 (3.5-5.1) mmol/L Chloride 97 L (98-107) mmol/L Carbon Dioxide 34 H (21-32) mmol/L Anion Gap 10.3 (7-13) mEq/L BUN 9 (7-18) mg/dL Creatinine 0.79 (0.70-1.30) mg/dL Est Cr Clr Drug Dosing 121.92 mL/min Estimated GFR (MDRD) > 60 BUN/Creatinine Ratio 11.4 (No establ ref range) Glucose 163 H (74-99) mg/dL Lactic Acid 1.1 (0.4-2.0) mmol/L Calcium 8.8 (8.5-10.1) mg/dL Total Bilirubin 0.3 (0.2-1.0) mg/dL AST 11 L (15-37) U/L ALT 49 (16-63) U/L Alkaline Phosphatase 57 (46-116) U/L Total Protein 7.1 (6.4-8.2) g/dL Albumin 2.3 L (3.4-5.0) g/dL Globulin 4.8 Albumin/Globulin Ratio 0.48 Meds: Medications Generic Name Dose Route Start Last Admin Trade Name Freq PRN Reason Stop Dose Admin Vancomycin HCl 1.75 gm/ Premix 350 mls @ 200 mls/hr 01/08/21 11:00 01/08/21 10:55 IV 01/08/21 12:44 200 mls/hr ONETIME ONE Administration Departure - Departure Time of Disposition: 12:43 Disposition: Home, Self-Care 01 Condition: Fair Clinical Impression: Cellulitis of left leg - Discharge Information *PRESCRIPTION DRUG MONITORING PROGRAM REVIEWED*: Not Applicable *COPY OF PRESCRIPTION DRUG MONITORING REPORT IN PATIENT MOMO: Not Applicable Forms: ED Department Discharge Care Plan Goals: The patient was advised of the examination, ultrasound results and lab results during the visit. The patient was given an IV dose of Vancomycin while in the ED. The patient was advised to stop taking the Clindamycin at this time. The patient was discharged with a script for Bactrim DS #20 to take 1 by mouth 2 times per day for 10 days and Keflex (500 mg) #40 to take 1 by mouth 4 times per day for 10 days. The patient was encouraged to follow-up with his primary care facility. If the patient has any additional symptoms or concerns, the patient should either return to the emergency department or visit his primary care facility. Sepsis Event Note (ED) - Evaluation Sepsis Screening Result: No Definite Risk - Focused Exam Vital Signs: Vital Signs Temp Pulse Resp BP Pulse Ox 01/08/21 09:46 36.3 C 86 20 114/53 L 95 - My Orders Last 24 Hours: My Active Orders 01/08/21 09:54 CULTURE WOUND [RM] Stat 01/08/21 09:55 Blood Culture x2 Reflex Set [OM.PC] Stat 01/08/21 10:06 CULTURE BLOOD [BC] Stat 01/08/21 10:15 CULTURE BLOOD [BC] Stat 01/08/21 11:00 Vancomycin/Water For INJ (PEG) [Vancomycin in Water 1.75 GM/350 ML] 1.75 gm Premix Bag 1 bag IV ONETIME - Assessment/Plan Last 24 Hours: My Active Orders 01/08/21 09:54 CULTURE WOUND [RM] Stat 01/08/21 09:55 Blood Culture x2 Reflex Set [OM.PC] Stat 01/08/21 10:06 CULTURE BLOOD [BC] Stat 01/08/21 10:15 CULTURE BLOOD [BC] Stat 01/08/21 11:00 Vancomycin/Water For INJ (PEG) [Vancomycin in Water 1.75 GM/350 ML] 1.75 gm Premix Bag 1 bag IV ONETIME
[2021-01-08 10:34] LABS: ANION GAP 10.3 mEq/L (7-13); CHLORIDE,CL 97 mmol/L (98-107); SODIUM,NA 137 mmol/L (136-145)
[2021-01-08] MEDS ORDERED: Vancomycin 2 GM in Sodium Chloride 0.9% 500 ML IV ONE (10:46)
[2021-01-08] MEDS ORDERED: VANCOmycin 1.75 GM/350 ML 1.75 GM in Premix Bag 1 BAG IV ONE (11:00)
--- NOTE | 2021-01-08 11:34 | US ---
EXAMINATION: Venous Doppler Lwr Ext Lt SEX: Male AGE: 45 years CLINICAL HISTORY: 45-year-old morbidly obese diabetic male at bed rest with history "blood clots" and now left lower extremity edema. Rule out DVT. INTERPRETATION: 1. Multiple nodes (lymphadenopathy) left groin. 2. No sign of intraluminal echogenic thrombus and normal compressibility deep veins of the left groin, thigh and knee. Satisfactory augmentation and venous waveforms demonstrated respectively in the posterior tibial vein behind the knee and proximally in the femoral veins left thigh and groin. 3. The posterior tibial and peroneal veins of the left calf not visualized today in this large male. 4. Greater saphenous vein not seen. 5. No sign of hematoma. CONCLUSION: Lymphadenopathy. No deep vein thrombosis proximal left lower extremity diagnosed.
== END 2021-01-08 12:57 | disposition home or self-care (01) ==
LOC: DL.ED 09:35
DX: L03.116 Cellulitis of left lower limb (principal); I10 Essential (primary) hypertension; K21.9 Gastro-esophageal reflux disease without esophagitis; E11.9 Type 2 diabetes mellitus without complications; Z79.84 Long term (current) use of oral hypoglycemic drugs; Z79.899 Other long term (current) drug therapy; Z86.711 Personal history of pulmonary embolism; Z79.01 Long term (current) use of anticoagulants
CPT/HCPCS: 36415; 80053; 83605; 85025; 87040; 87070; 87077; 87186; 93971; 96365; 96366; 99283; 99284; J3370

== ENCOUNTER 2021-04-30 20:41 | Emergency (ER) | payer OTHER ==
[2021-04-30 21:03] VITALS: BP 116/79; PULSE 90
--- NOTE | 2021-04-30 22:05 | CR ---
PROCEDURE INFORMATION: Exam: XR Right Wrist Exam date and time: 04/30/2021 9:26 PM Age: 46 years old Clinical indication: Other: Fall/pain TECHNIQUE: Imaging protocol: XR Right wrist. Views: 3 or more views. COMPARISON: CR Wrist Comp Min 3V Rt 10/14/2020 5:17 PM FINDINGS: Bones/joints: There is no evidence of acute fracture. There is no evidence of joint malalignment or dislocation. Soft tissues: There are no soft tissue masses or fluid collections. IMPRESSION: 1. No evidence of acute fracture. 2. No evidence of acute dislocation.
--- NOTE | 2021-04-30 23:03 | EDM.PDOC ---
ED HPI GENERAL MEDICAL PROBLEM - General Chief Complaint: Back Pain or Injury Stated Complaint: FELL, PAIN IN BACK AND RIGHT WRIST Time Seen by Provider: 04/30/21 22:00 Source of Information: Reports: Patient History Limitations: Reports: No Limitations - History of Present Illness INITIAL COMMENTS - FREE TEXT/NARRATIVE: ED with c/o low back pain, stepping up curb and fell, Pain to right wrist and low back. 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 Has not taken anything for discomfort. Left Lower Back Pain Score (Numeric/FACES): 8 Right Wrist Pain Score (Numeric/FACES): 8 - Related Data Allergies Allergy/AdvReac Type Severity Reaction Status Date / Time No Known Allergies Allergy Verified 01/08/21 09:49 Home Meds: Home Meds Omeprazole 20 mg PO DAILY 11/04/13 [History] Pramipexole [Mirapex] 0.25 mg PO BEDTIME 08/08/16 [History] clomiPHENE citrate [Serophene] 25 mg PO DAILY 08/08/16 [History] Warfarin [Coumadin] 11 mg PO DAILY 04/14/17 [History] Lisinopril 5 mg PO DAILY 10/31/17 [History] glyBURIDE [Glyburide] 5 mg PO DAILY 10/31/17 [History] traZODone HCl [Trazodone HCl] 200 mg PO BEDTIME 10/31/17 [History] Liraglutide [Victoza] 1.2 mg SQ DAILY 09/12/19 [History] buPROPion HCL [Bupropion Xl] 300 mg PO DAILY 01/08/21 [History] Past Medical History HEENT History: Reports: Impaired Vision Other HEENT History: wears corrective lenses Cardiovascular History: Reports: High Cholesterol, Hypertension Respiratory History: Reports: PE Other Respiratory History: "blood clots in the lung" Gastrointestinal History: Reports: GERD Genitourinary History: Reports: None Other Musculoskeletal History: carpal tunnel surgery right hand Neurological History: Reports: None Psychiatric History: Reports: Depression Endocrine/Metabolic History: Reports: Diabetes, Type II Hematologic History: Reports: Anticoagulation Therapy Immunologic History: Reports: None Oncologic (Cancer) History: Reports: None Dermatologic History: Reports: None - Infectious Disease History Infectious Disease History: Reports: None - Past Surgical History Head Surgeries/Procedures: Reports: None HEENT Surgical History: Reports: None Cardiovascular Surgical History: Reports: None Respiratory Surgical History: Reports: Other (See Below) Other Respiratory Surgeries/Procedures: embolectomy Other Musculoskeletal Surgeries/Procedures:: Foot surgery 2019 Social & Family History - Family History Family Medical History: No Pertinent Family History Cardiac: Reports: CAD, Hypertension - Tobacco Use Tobacco Use Status *Q: Never Tobacco User - Caffeine Use Caffeine Use: Reports: Soda - Recreational Drug Use Recreational Drug Use: No - Living Situation & Occupation Living situation: Reports: with Family Occupation: Employed ED ROS GENERAL - Review of Systems Review Of Systems: Comprehensive ROS is negative, except as noted in HPI. ED EXAM,LOWER BACK PAIN/INJURY - Physical Exam Exam: See Below Exam Limited By: No Limitations General Appearance: Alert, Mild Distress, Obese (morbid) Eye Exam: Bilateral Eye: EOMI, PERRL Ears: Hearing Grossly Normal Nose: Normal Inspection Throat/Mouth: Normal Inspection Head: Atraumatic, Normocephalic Neck: Tender Lateral Respiratory/Chest: Lungs Clear, Normal Breath Sounds Cardiovascular: Normal Peripheral Pulses, Regular Rate, Rhythm Back Exam: Full Range of Motion, Paraspinal Tenderness (mild lower bilateral). No: Vertebral Tenderness Extremities: Normal Range of Motion (right wrist). No: Joint Swelling, Limited Range of Motion Neurological: Alert, Oriented x 3. No: Abnormal Gait Skin Exam: Warm, Dry, Intact, Ecchymosis (mild right inner wrist) Course - Vital Signs Last Recorded V/S: Last Vital Signs Temp 98.7 F 04/30/21 21:02 Pulse 90 04/30/21 21:02 Resp 16 04/30/21 21:02 BP 116/79 04/30/21 21:02 Pulse Ox 94 L 04/30/21 21:02 Departure - Departure Time of Disposition: 22:59 Disposition: Home, Self-Care 01 Condition: Good Clinical Impression: Fall Qualifiers: Encounter type: initial encounter Qualified Code(s): W19.XXXA - Unspecified fall, initial encounter Low back pain Qualifiers: Chronicity: acute Back pain laterality: bilateral Sciatica presence: without sciatica Qualified Code(s): M54.5 - Low back pain Wrist pain Qualifiers: Laterality: right Qualified Code(s): M25.531 - Pain in right wrist - Discharge Information *PRESCRIPTION DRUG MONITORING PROGRAM REVIEWED*: No *COPY OF PRESCRIPTION DRUG MONITORING REPORT IN PATIENT MOMO: No Instructions: Muscle Strain, [id number] Referrals: Nelly Regalado MD [Primary Care Provider] - Forms: ED Department Discharge Additional Instructions: tylenol 500mg every 4 hours as needed for discomfort ice to wrist and low back may use bengay or icy hot type product to low back per package instructions clinic follow up next week if not improving Sepsis Event Note (ED) - Evaluation Sepsis Screening Result: No Definite Risk
== END 2021-04-30 23:05 | disposition home or self-care (01) ==
LOC: DL.ED 20:41
DX: M25.531 Pain in right wrist (principal); M54.5 Low back pain; E78.00 Pure hypercholesterolemia, unspecified; I10 Essential (primary) hypertension; E11.9 Type 2 diabetes mellitus without complications; W18.39XA Other fall on same level, initial encounter
CPT/HCPCS: 73110-RT; 99283-25

== ENCOUNTER 2021-06-13 20:57 | Emergency (ER) | payer OTHER ==
[2021-06-13 21:10] VITALS: BP 143/87; PULSE 98
--- NOTE | 2021-06-13 21:16 | EDM.PDOC ---
ED HPI GENERAL MEDICAL PROBLEM - General Chief Complaint: Skin Complaint Stated Complaint: SORES ON BACK AND LEGS Time Seen by Provider: 06/13/21 21:16 Source of Information: Reports: Patient, RN, RN Notes Reviewed History Limitations: Reports: No Limitations - History of Present Illness INITIAL COMMENTS - FREE TEXT/NARRATIVE: Patient is a 46-year-old male who presents to ER with complaint of open sores to the back of the left lower calf. Patient states he noticed this beginning the last couple of days. States he has had open sores in the past and his leg has become very red and swollen and infected. Minimal erythema around the sores at this time. Patient has been using bandages and triple antibiotic ointment on the area. Patient admits to being a diabetic, uses Metformin on a daily basis. States he does check his blood sugars twice daily last being 119. Patient denies any fever or chills recently. Onset: Gradual, Unknown/Unsure - Related Data Allergies Allergy/AdvReac Type Severity Reaction Status Date / Time No Known Allergies Allergy Verified 01/08/21 09:49 Home Meds: Home Meds Omeprazole 20 mg PO DAILY 11/04/13 [History] Pramipexole [Mirapex] 0.25 mg PO BEDTIME 08/08/16 [History] clomiPHENE citrate [Serophene] 25 mg PO DAILY 08/08/16 [History] Warfarin [Coumadin] 11 mg PO DAILY 04/14/17 [History] Lisinopril 5 mg PO DAILY 10/31/17 [History] glyBURIDE [Glyburide] 5 mg PO DAILY 10/31/17 [History] traZODone HCl [Trazodone HCl] 200 mg PO BEDTIME 10/31/17 [History] Liraglutide [Victoza] 1.2 mg SQ DAILY 09/12/19 [History] buPROPion HCL [Bupropion Xl] 300 mg PO DAILY 01/08/21 [History] Past Medical History HEENT History: Reports: Impaired Vision Other HEENT History: wears corrective lenses Cardiovascular History: Reports: High Cholesterol, Hypertension Respiratory History: Reports: PE Other Respiratory History: "blood clots in the lung" Gastrointestinal History: Reports: GERD Genitourinary History: Reports: None Other Musculoskeletal History: carpal tunnel surgery right hand Neurological History: Reports: None Psychiatric History: Reports: Depression Endocrine/Metabolic History: Reports: Diabetes, Type II Hematologic History: Reports: Anticoagulation Therapy Immunologic History: Reports: None Oncologic (Cancer) History: Reports: None Dermatologic History: Reports: None - Infectious Disease History Infectious Disease History: Reports: None - Past Surgical History Head Surgeries/Procedures: Reports: None HEENT Surgical History: Reports: None Cardiovascular Surgical History: Reports: None Respiratory Surgical History: Reports: Other (See Below) Other Respiratory Surgeries/Procedures: embolectomy Other Musculoskeletal Surgeries/Procedures:: Foot surgery 2019 Social & Family History - Family History Family Medical History: No Pertinent Family History Cardiac: Reports: CAD, Hypertension - Tobacco Use Tobacco Use Status *Q: Never Tobacco User Second Hand Smoke Exposure: No - Caffeine Use Caffeine Use: Reports: Coffee - Recreational Drug Use Recreational Drug Use: No - Living Situation & Occupation Living situation: Reports: with Family Occupation: Employed ED ROS GENERAL - Review of Systems Review Of Systems: Comprehensive ROS is negative, except as noted in HPI. ED EXAM, SKIN/RASH Exam: See Below Exam Limited By: No Limitations General Appearance: Alert, WD/WN, No Apparent Distress, Obese Eye Exam: Bilateral Eye: EOMI, Normal Inspection Ears: Normal External Exam, Hearing Grossly Normal Nose: Normal Inspection Throat/Mouth: Normal Inspection, Normal Voice, No Airway Compromise Head: Atraumatic, Normocephalic Neck: Normal Inspection, Full Range of Motion Respiratory/Chest: No Respiratory Distress, Lungs Clear, Normal Breath Sounds, No Accessory Muscle Use, Chest Non-Tender Cardiovascular: Normal Peripheral Pulses, Regular Rate, Rhythm, No Edema, No Gallop, No JVD, No Murmur, No Rub Peripheral Pulses: 2+: Radial (L), Radial (R) GI/Abdominal: Normal Bowel Sounds, Soft, Non-Tender (Male) Exam: Deferred Rectal (Males) Exam: Deferred Back Exam: Normal Inspection, Full Range of Motion, NT Extremities: Normal Inspection, Normal Range of Motion, Non-Tender, No Pedal Edema, Normal Capillary Refill Neurological: Alert, Oriented, Normal Cognition, Normal Gait, No Motor/Sensory Deficits Psychiatric: Normal Affect, Normal Mood Skin: Warm, Dry, Other (Posterior lower left calf has 2 small wounds approximately 1 cm x 1 cm each, mild erythema surrounding the immediate area of the sores, not extending throughout the leg.) Location, Skin: Lower Extremity, Left Associated features: Warmth, Tenderness, Weeping (Yellow) Lymphatic: No Adenopathy Course - Vital Signs Last Recorded V/S: Last Vital Signs Temp 98.9 F 06/13/21 21:07 Pulse 98 06/13/21 21:07 Resp 20 06/13/21 21:07 BP 143/87 H 06/13/21 21:07 Pulse Ox 98 06/13/21 21:07 - Orders/Labs/Meds Orders: Active Orders 24 hr Category Date Time Status CULTURE WOUND [RM] Urgent Lab 06/13/21 21:23 Ordered Meds: Medications Discontinued Medications Generic Name Dose Route Start Last Admin Trade Name Samreen PRN Reason Stop Dose Admin Clindamycin HCl 300 mg 06/13/21 21:30 Clindamycin Hcl 150 Mg Cap PO 06/13/21 21:31 ONETIME ONE Mupirocin 1 gm 06/13/21 21:30 Mupirocin Oint 22 Gm Tube TOP 06/13/21 21:31 ONETIME ONE Departure - Departure Time of Disposition: 21:40 Disposition: Home, Self-Care 01 Condition: Good Clinical Impression: Wound of left lower extremity Qualifiers: Encounter type: initial encounter Qualified Code(s): S81.802A - Unspecified open wound, left lower leg, initial encounter Diabetes mellitus Qualifiers: Diabetes mellitus type: type 2 Diabetes mellitus retirement insulin use: 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 Diabetes mellitus complication status: with skin complications Diabetes mellitus complication detail: with other skin ulcer Qualified Code(s): E11.622 - Type 2 diabetes mellitus with other skin ulcer - Discharge Information *PRESCRIPTION DRUG MONITORING PROGRAM REVIEWED*: No *COPY OF PRESCRIPTION DRUG MONITORING REPORT IN PATIENT MOMO: No Instructions: Type 2 Diabetes Mellitus, Self Care, Adult, [id number], Diabetes Mellitus and Skin Care Forms: ED Department Discharge Additional Instructions: Keep area clean and dry RX: Clindamycin 300mg orally three times daily for 10 days Follow up with your primary care facility for further care, she may want you to see wound care Return to the ER with any worsening of symptoms (fever, chills, redness extending on the leg) Sepsis Event Note (ED) - Evaluation Sepsis Screening Result: No Definite Risk - Focused Exam Vital Signs: Vital Signs Temp Pulse Resp BP Pulse Ox 06/13/21 21:07 98.9 F 98 20 143/87 H 98 - My Orders Last 24 Hours: My Active Orders 06/13/21 21:23 CULTURE WOUND [RM] Urgent - Assessment/Plan Last 24 Hours: My Active Orders 06/13/21 21:23 CULTURE WOUND [RM] Urgent
[2021-06-13] MEDS ORDERED: Clindamycin HCl 150 MG Cap PO ONE (21:30)
[2021-06-13] MEDS ORDERED: Mupirocin Oint 22 GM Tube TOP ONE (21:30)
== END 2021-06-13 21:57 | disposition home or self-care (01) ==
LOC: DL.ED 20:57
DX: S81.802A Unspecified open wound, left lower leg, initial encounter (principal); E11.622 Type 2 diabetes mellitus with other skin ulcer; E78.00 Pure hypercholesterolemia, unspecified; I10 Essential (primary) hypertension; K21.9 Gastro-esophageal reflux disease without esophagitis; E11.9 Type 2 diabetes mellitus without complications; Z79.01 Long term (current) use of anticoagulants; Z79.899 Other long term (current) drug therapy; X58.XXXA Exposure to other specified factors, initial encounter
CPT/HCPCS: 87070; 99283; A9270

== ENCOUNTER → 2022-08-17 | Day surgery (SDC) | payer OTHER | LOC: DL.SDS 06:30 | PROVIDERS: ATTEND Ophthalmology | DX: E11.36 Type 2 diabetes mellitus with diabetic cataract (principal); H25.812 Combined forms of age-related cataract, left eye; I10 Essential (primary) hypertension; E11.40 Type 2 diabetes mellitus with diabetic neuropathy, unspecified; E66.01 Morbid (severe) obesity due to excess calories; K21.9 Gastro-esophageal reflux disease without esophagitis; I26.99 Other pulmonary embolism without acute cor pulmonale; G47.33 Obstructive sleep apnea (adult) (pediatric); G47.00 Insomnia, unspecified; E78.5 Hyperlipidemia, unspecified; I87.2 Venous insufficiency (chronic) (peripheral); M79.671 Pain in right foot; G89.29 Other chronic pain; F33.0 Major depressive disorder, recurrent, mild; Z68.43 Body mass index [BMI] 50.0-59.9, adult; Z79.84 Long term (current) use of oral hypoglycemic drugs; Z79.01 Long term (current) use of anticoagulants; Z79.899 Other long term (current) drug therapy | CPT/HCPCS: 00142; 66984; 82947; C1780 ==

== ENCOUNTER 2022-08-31 06:26 | Day surgery (SDC) | payer OTHER ==
[~2022-08-31 06:26] MED LIST: Proparacaine 0.5% Ophth Soln 15 ML Bottle ONE
[2022-08-31] MEDS ORDERED: Sodium Chloride 0.9% 10 ML Syringe IV ONE (06:27)
[2022-08-31] MEDS ORDERED: Dexamethasone 4 MG/ML SDV IV ONE (06:27)
[2022-08-31] MEDS ORDERED: Midazolam 1 MG/ML 2 ML SDV IV ONE (06:27)
[2022-08-31] MEDS ORDERED: Ondansetron 4 MG/2 ML SDV IVPUSH PRN (06:30)
[2022-08-31] MEDS ORDERED: Acetaminophen/Codeine 300-30 MG Tab PO PRN (06:30)
[2022-08-31] MEDS ORDERED: Acetaminophen 325 MG Tab PO PRN (06:30)
[2022-08-31] MEDS: Sodium Chloride 0.9% 10 ML Syringe FLUSH PRN (06:48)
[2022-08-31] MEDS: Proparacaine 0.5% Ophth Soln 15 ML Bottle EYELF ONE ×2 (06:52→08:07)
[2022-08-31] MEDS: Moxifloxacin 0.5% Ophth Soln 3 ML Bottle EYELF ONE (06:52)
[2022-08-31] MEDS: Povidone-Iodine 5% Sterile Ophth Soln 30 ML Bottle EYELF ONE ×2 (06:53→08:10)
[2022-08-31] MEDS: Tropicamide 1% Ophth Soln 15 ML Bottle EYELF ONE (06:54)
[2022-08-31] MEDS: Phenylephrine 10% Ophth Soln 5 ML Bot EYELF PRN (06:55)
[2022-08-31] MEDS: Timolol Maleate 0.5% Ophth Soln 5 ML Bottle EYELF ONE (06:55)
[2022-08-31] MEDS: Cataract Ophth Solution EYELF ONE (06:56)
[2022-08-31] MEDS: Apraclonidine 0.5% Ophth Soln 5 ML Bot EYELF ONE (08:11)
[2022-08-31] MEDS: Diclofenac Sodium 0.1% Ophth Soln 5 ML Bottle EYELF ONE (08:12)
[2022-08-31] MEDS: Lidocaine 1% 30 ML SDV ONE (08:13)
[2022-08-31] MEDS: Dexamethasone/Neomycin/Polymyxin B Ophth Oint 3.5 GM Tube EYELF ONE (08:13)
[2022-08-31] MEDS: Chondroitin Sulfate/Hyaluronate Sodium Ophth Inj 0.75 ML Syringe EYELF ONE (08:13)
[2022-08-31] MEDS: Vancomycin 500 MG SDV EYELF ONE (08:13)
[2022-08-31] MEDS: Balanced Salt Solution Ophth Irrig 500 ML Bottle IOCULAR ONE (08:13)
[2022-08-31 12:54] VITALS: BP 142/89; PULSE 76
== END 2022-08-31 09:18 | disposition home or self-care (01) ==
LOC: DL.SDS 06:26
PROVIDERS: ATTEND Ophthalmology
DX: E11.36 Type 2 diabetes mellitus with diabetic cataract (principal); H25.812 Combined forms of age-related cataract, left eye; E11.40 Type 2 diabetes mellitus with diabetic neuropathy, unspecified; K21.9 Gastro-esophageal reflux disease without esophagitis; G47.00 Insomnia, unspecified; F33.0 Major depressive disorder, recurrent, mild; I10 Essential (primary) hypertension; E66.01 Morbid (severe) obesity due to excess calories; Z79.84 Long term (current) use of oral hypoglycemic drugs; Z79.899 Other long term (current) drug therapy; Z68.43 Body mass index [BMI] 50.0-59.9, adult
CPT/HCPCS: 00142; 66984; 82947; A9270; C1780; J1100; J2250; J3370; J3490

== ENCOUNTER 2023-03-30 11:42 | Emergency (ER) | payer SELFPAY ==
[2023-03-30] MEDS ORDERED: Sodium Chloride 0.9% 10 ML Syringe FLUSH PRN (12:09)
[2023-03-30 12:49] LABS: BASOPHILS PERCENT AUTO 0.4 % (0.0-1.0); EOSINOPHILS PERCENT AUTO 3.7 % (1.0-3.0); HEMATOCRIT 44.8 % (40.0-54.0); HEMOGLOBIN 14.3 g/dL (14.0-18.0); LYMPHOCYTES PERCENT AUTO 21.1 % (20.5-50.1); MEAN CORPUSCULAR HEMOGLOBIN 28.8 pg (27.0-34.0); MEAN CORPUSCULAR HGB CONC 31.9 g/dL (33.0-35.0); MEAN CORPUSCULAR VOLUME 90.1 fL (80-100); MONOCYTES PERCENT AUTO 8.3 % (2-8); NEUTROPHILS PERCENT AUTO 66.5 % (42.2-75.2); PLATELET COUNT,PLT 283 10^3/uL (150-450); RED BLOOD CELL COUNT 4.97 10^6/uL (4.6-6.2); WHITE BLOOD CELL COUNT,WBC 9.3 10^3/uL (5.0-10.0)
[2023-03-30 13:06] LABS: ALANINE AMINOTRANSFERASE,ALT 26 U/L (16-63); ALBUMIN 2.7 g/dL (3.4-5.0); ALKALINE PHOSPHATASE 66 U/L (46-116); ANION GAP 9.3 mEq/L (7-13); ASPARTATE AMNIOTRANSFERASE,AST 14 U/L (15-37); BILIRUBIN TOTAL 0.2 mg/dL (0.2-1.0); BLOOD UREA NITROGEN,BUN 7 mg/dL (7-18); BUN/CREATININE RATIO 8.4 (No establ ref range); C-REACTIVE PROTEIN 7.1 mg/dL (0.0-0.9); CALCIUM 8.6 mg/dL (8.5-10.1); CARBON DIOXIDE,CO2 35 mmol/L (21-32); CHLORIDE,CL 101 mmol/L (98-107); CREATININE 0.83 mg/dL (0.70-1.30); GLUCOSE RANDOM 216 mg/dL (70-99); POTASSIUM,K 4.3 mmol/L (3.5-5.1); PROTEIN TOTAL,TP 6.8 g/dL (6.4-8.2); SODIUM,NA 141 mmol/L (136-145)
[2023-03-30 13:09] LABS: LACTIC ACID 1.3 mmol/L (0.4-2.0)
[2023-03-30 13:12] LABS: A/G RATIO 0.66; ESTIMATED GFR 108 mL/min (>=60)
[2023-03-30 13:33] LABS: APPEARANCE,URINE CLEAR (CLEAR); BILIRUBIN,URINE NEGATIVE (NEGATIVE); COLOR,URINE YELLOW (YELLOW); GLUCOSE,URINE NEGATIVE (NEGATIVE); KETONES,URINE NEGATIVE (NEGATIVE); OCCULT BLOOD,URINE NEGATIVE (NEGATIVE); PH,URINE 5.5 (5.0-9.0); PROTEIN,URINE NEGATIVE (NEGATIVE)
[2023-03-30 13:34] LABS: LEUKOCYTE ESTERASE,URINE NEGATIVE (NEGATIVE); NITRITE,URINE NEGATIVE (NEGATIVE); UROBILINOGEN,URINE 0.2 mg/dL (0.2-1.0)
[2023-03-30] MEDS ORDERED: Iopamidol 755 Mg/ML 100 ML Bottle IVPUSH ONE (14:41)
[2023-03-30] MEDS ORDERED: Naloxone 2 MG/2 ML Syringe IVPUSH ONE (16:07)
[2023-03-30 16:46] VITALS: BP 128/85; PULSE 82
== END 2023-03-30 16:41 | disposition home or self-care (01) ==
LOC: DL.ED 11:42
DX: J06.9 Acute upper respiratory infection, unspecified (principal); E78.00 Pure hypercholesterolemia, unspecified; I10 Essential (primary) hypertension; K21.9 Gastro-esophageal reflux disease without esophagitis; E11.9 Type 2 diabetes mellitus without complications; Z79.01 Long term (current) use of anticoagulants; Z79.899 Other long term (current) drug therapy
CPT/HCPCS: 36415; 71046; 71275; 80053; 81003; 83605; 85025; 86140; 87040; 96374; 99285; J2310; Q9967; 99284; J3490

== ENCOUNTER 2023-12-03 15:56 | Emergency (ER) | payer MEDICAID | END 2023-12-03 16:14 | disposition left against medical advice (07) | LOC: DL.ED 15:56 | DX: Z53.21 Procedure and treatment not carried out due to patient leaving prior to being seen by health care provider (principal) ==

== ENCOUNTER 2024-03-15 19:08 | Emergency (ER) | payer MEDICAID ==
[2024-03-15 19:37] VITALS: BP 145/91; PULSE 79
[2024-03-15 20:01] LABS: BASOPHILS PERCENT AUTO 0.3 % (0.0-1.0); EOSINOPHILS PERCENT AUTO 1.8 % (1.0-3.0); HEMOGLOBIN 14.7 g/dL (14.0-18.0); MEAN CORPUSCULAR HEMOGLOBIN 28.8 pg (27.0-34.0); MEAN CORPUSCULAR HGB CONC 32.7 g/dL (33.0-35.0); MEAN CORPUSCULAR VOLUME 88.2 fL (80-100); MONOCYTES PERCENT AUTO 6.8 % (2-8); NEUTROPHILS PERCENT AUTO 66.1 % (42.2-75.2); PLATELET COUNT,PLT 314 10^3/uL (150-450); WHITE BLOOD CELL COUNT,WBC 12.5 10^3/uL (5.0-10.0)
[2024-03-15 20:10] LABS: ALBUMIN 3.3 g/dL (3.4-5.0); ANION GAP 13.7 mEq/L (7-13); BILIRUBIN TOTAL 0.3 mg/dL (0.2-1.0); BUN/CREATININE RATIO 18.4 (No establ ref range); CALCIUM 8.6 mg/dL (8.5-10.1); CREATININE 0.98 mg/dL (0.70-1.30); EST CRCL DRUG DOSING (CG) 95.18 mL/min; MAGNESIUM 1.3 mg/dL (1.8-2.4); POTASSIUM,K 3.7 mmol/L (3.5-5.1); PROTEIN TOTAL,TP 7.2 g/dL (6.4-8.2)
[2024-03-15] MEDS: GI Cocktail Oral Solution 30 ML PO ONE (20:10)
[2024-03-15] MEDS: Sodium Chloride 0.9% 10 ML Syringe FLUSH PRN (20:11)
[2024-03-15 20:18] LABS: A/G RATIO 0.85
[2024-03-15 20:33] LABS: INR 1.7 (0.9-1.2); PROTHROMBIN TIME 17.2 SEC (9.0-12.0); PTT,PARTIAL THROMBOPLSTIN TIME 27.7 SEC (22.0-34.0)
[2024-03-15 21:18] LABS: APPEARANCE,URINE CLEAR (CLEAR); BILIRUBIN,URINE NEGATIVE (NEGATIVE); COLOR,URINE YELLOW (YELLOW); GLUCOSE,URINE NEGATIVE (NEGATIVE); KETONES,URINE NEGATIVE (NEGATIVE); LEUKOCYTE ESTERASE,URINE NEGATIVE (NEGATIVE); NITRITE,URINE NEGATIVE (NEGATIVE); OCCULT BLOOD,URINE NEGATIVE (NEGATIVE); PH,URINE 5.5 (5.0-9.0); PROTEIN,URINE NEGATIVE (NEGATIVE); UROBILINOGEN,URINE 0.2 mg/dL (0.2-1.0)
== END 2024-03-15 22:24 | disposition home or self-care (01) ==
LOC: DL.ED 19:08
DX: K21.9 Gastro-esophageal reflux disease without esophagitis (principal); E11.9 Type 2 diabetes mellitus without complications; D72.829 Elevated white blood cell count, unspecified; Z79.899 Other long term (current) drug therapy; Z79.01 Long term (current) use of anticoagulants; Z79.84 Long term (current) use of oral hypoglycemic drugs; E78.00 Pure hypercholesterolemia, unspecified
CPT/HCPCS: 36415; 80053; 81003; 83690; 83735; 85025; 85610; 85730; 99284; A9270; J3490

== ENCOUNTER 2024-03-28 05:35 | Day surgery (SDC) | payer MEDICAID ==
[2024-03-28] MEDS: Dextrose 5%-0.45% NaCl 1,000 ML IV SCH (05:52)
[2024-03-28] MEDS ORDERED: fentaNYL 100 MCG/2 ML SDV ONE (05:58)
[2024-03-28] MEDS ORDERED: Midazolam 1 MG/ML 2 ML SDV ONE (05:58)
[2024-03-28] MEDS: fentaNYL 100 MCG/2 ML SDV IV ONE ×2 (06:42→06:43)
[2024-03-28] MEDS: Midazolam 1 MG/ML 2 ML SDV IV ONE ×3 (06:43→06:46)
[2024-03-28 08:39] VITALS: BP 121/66; PULSE 65
== END 2024-03-28 08:35 | disposition home or self-care (01) ==
LOC: DL.ENDO 05:35
PROVIDERS: ATTEND Internal Medicine Gastroenterology
DX: Z12.11 Encounter for screening for malignant neoplasm of colon (principal); K64.8 Other hemorrhoids; K57.30 Diverticulosis of large intestine without perforation or abscess without bleeding; I10 Essential (primary) hypertension; E11.9 Type 2 diabetes mellitus without complications; K21.9 Gastro-esophageal reflux disease without esophagitis; E78.5 Hyperlipidemia, unspecified; E66.01 Morbid (severe) obesity due to excess calories; Z68.42 Body mass index [BMI] 45.0-49.9, adult; E83.42 Hypomagnesemia; Z79.899 Other long term (current) drug therapy
CPT/HCPCS: 45378; J2250; J3010; J7042

== ENCOUNTER 2024-05-09 16:37 | Emergency (ER) | payer MEDICAID ==
[2024-05-09 16:51] VITALS: BP 147/99; PULSE 88
== END 2024-05-09 17:00 | disposition home or self-care (01) ==
LOC: DL.ED 16:37
DX: S61.212A Laceration without foreign body of right middle finger without damage to nail, initial encounter (principal); I10 Essential (primary) hypertension; E78.00 Pure hypercholesterolemia, unspecified; E11.9 Type 2 diabetes mellitus without complications; Z79.01 Long term (current) use of anticoagulants; Z79.899 Other long term (current) drug therapy; Z79.84 Long term (current) use of oral hypoglycemic drugs; W25.XXXA Contact with sharp glass, initial encounter; Y93.89 Activity, other specified
CPT/HCPCS: 12001; 99282

== ENCOUNTER 2024-12-23 17:14 | Emergency (ER) | payer MEDICAID ==
[2024-12-23 17:39] VITALS: PULSE 96
[2024-12-23 18:12] LABS: BASOPHILS PERCENT AUTO 0.7 % (0.0-1.0); EOSINOPHILS PERCENT AUTO 0.7 % (1.0-3.0); HEMATOCRIT 42.5 % (40.0-54.0); HEMOGLOBIN 13.9 g/dL (14.0-18.0); MEAN CORPUSCULAR HEMOGLOBIN 28.7 pg (27.0-34.0); MEAN CORPUSCULAR HGB CONC 32.7 g/dL (33.0-35.0); MEAN CORPUSCULAR VOLUME 87.6 fL (80-100); MONOCYTES PERCENT AUTO 18.7 % (2-8); NEUTROPHILS PERCENT AUTO 62.9 % (42.2-75.2); PLATELET COUNT,PLT 247 10^3/uL (150-450); RED BLOOD CELL COUNT 4.85 10^6/uL (4.6-6.2)
[2024-12-23 18:30] LABS: INR 1.2 (0.9-1.2); PROTHROMBIN TIME 12.5 SEC (9.0-12.0)
[2024-12-23 18:34] LABS: ALBUMIN 3.3 g/dL (3.4-5.0); ANION GAP 10.2 mEq/L (7-13); BILIRUBIN TOTAL 0.4 mg/dL (0.2-1.0); BUN/CREATININE RATIO 13.5 (No establ ref range); CALCIUM 8.8 mg/dL (8.5-10.1); CREATININE 1.26 mg/dL (0.70-1.30); EST CRCL DRUG DOSING (CG) 73.23 mL/min; POTASSIUM,K 4.2 mmol/L (3.5-5.1); PROTEIN TOTAL,TP 6.8 g/dL (6.4-8.2)
[2024-12-23 18:35] LABS: A/G RATIO 0.94
[2024-12-23] MEDS: Oseltamivir 75 MG Cap PO ONE (19:21)
[2024-12-23 19:24] VITALS: BP 112/71
== END 2024-12-23 19:23 | disposition home or self-care (01) ==
LOC: DL.ED 17:14
DX: J10.1 Influenza due to other identified influenza virus with other respiratory manifestations (principal); I10 Essential (primary) hypertension; E78.00 Pure hypercholesterolemia, unspecified; K21.9 Gastro-esophageal reflux disease without esophagitis; E11.9 Type 2 diabetes mellitus without complications; Z79.899 Other long term (current) drug therapy; Z79.01 Long term (current) use of anticoagulants; Z79.84 Long term (current) use of oral hypoglycemic drugs; Z79.2 Long term (current) use of antibiotics
CPT/HCPCS: 36415; 80053; 84484; 85025; 85610; 85730; 87081; 87428; 87430; 93005; 93010; 99283; 99285; A9270

== ENCOUNTER 2025-07-06 13:19 | Inpatient (IN) | payer BC, MEDICAID ==
[2025-07-06] MEDS ORDERED: Sodium Chloride 0.9% 10 ML Syringe FLUSH PRN ×2 (13:36)
[2025-07-06 13:48] LABS: BASOPHILS PERCENT AUTO 0.3 % (0.0-1.0); EOSINOPHILS PERCENT AUTO 2.2 % (1.0-3.0); LYMPHOCYTES PERCENT AUTO 28.9 % (20.5-50.1); MONOCYTES PERCENT AUTO 9.1 % (2-8); NEUTROPHILS PERCENT AUTO 59.5 % (42.2-75.2); PLATELET COUNT,PLT 272 10^3/uL (150-450); RED BLOOD CELL COUNT 4.64 10^6/uL (4.6-6.2); WHITE BLOOD CELL COUNT,WBC 9.6 10^3/uL (5.0-10.0)
[2025-07-06 14:03] LABS: INR 1.0 (0.9-1.2)
[2025-07-06 14:10] LABS: A/G RATIO 1.1; ALANINE AMINOTRANSFERASE,ALT 28.0 U/L (16-63); ASPARTATE AMNIOTRANSFERASE,AST 13.0 U/L (15-37); BILIRUBIN TOTAL 0.6 mg/dL (0.2-1.0); BLOOD UREA NITROGEN,BUN 22.0 mg/dL (7-18); CARBON DIOXIDE,CO2 28.0 mmol/L (21-32); CHLORIDE,CL 102.0 mmol/L (98-107); CREATININE 1.55 mg/dL (0.70-1.30); EST CRCL DRUG DOSING (CG) 58.87 mL/min; GLUCOSE RANDOM 145.0 mg/dL (70-99); POTASSIUM,K 3.9 mmol/L (3.5-5.1); PROTEIN TOTAL,TP 6.6 g/dL (6.4-8.2); SODIUM,NA 137.0 mmol/L (136-145)
[2025-07-06 14:11] LABS: ESTIMATED GFR 54.0 mL/min (>=60)
[2025-07-06] MEDS ORDERED: Ondansetron 4 MG/2 ML SDV IVPUSH PRN (16:22)
[2025-07-06] MEDS: Iopamidol 755 Mg/ML 100 ML Bottle IVPUSH ONE (17:49)
[2025-07-06] MEDS: Heparin Sodium 5,000 Units/ML Vial IVPUSH ONE (19:23)
[2025-07-06] MEDS: Heparin Sodium/0.45% NaCl 25,000 UNITS/500 ML BAG IV SCH (19:23)
[2025-07-06] MEDS ORDERED: 50% Dextrose in Water 50 ML Syringe IVPUSH PRN (23:01)
[2025-07-07] MEDS: Heparin Sodium 5,000 Units/ML Vial IVPUSH ONE ×3 (02:40→17:28)
[2025-07-07 06:44] LABS: BASOPHILS PERCENT AUTO 0.5 % (0.0-1.0); EOSINOPHILS PERCENT AUTO 3.7 % (1.0-3.0); LYMPHOCYTES PERCENT AUTO 40.0 % (20.5-50.1); MONOCYTES PERCENT AUTO 8.9 % (2-8); NEUTROPHILS PERCENT AUTO 46.9 % (42.2-75.2); PLATELET COUNT,PLT 256 10^3/uL (150-450); RED BLOOD CELL COUNT 4.49 10^6/uL (4.6-6.2); WHITE BLOOD CELL COUNT,WBC 8.5 10^3/uL (5.0-10.0)
[2025-07-07 07:16] LABS: ALANINE AMINOTRANSFERASE,ALT 26.0 U/L (16-63); ASPARTATE AMNIOTRANSFERASE,AST 13.0 U/L (15-37); BILIRUBIN TOTAL 0.5 mg/dL (0.2-1.0); BLOOD UREA NITROGEN,BUN 13.0 mg/dL (7-18); CARBON DIOXIDE,CO2 29.0 mmol/L (21-32); CHLORIDE,CL 107.0 mmol/L (98-107); CREATININE 1.01 mg/dL (0.70-1.30); EST CRCL DRUG DOSING (CG) 90.35 mL/min; GLUCOSE RANDOM 112.0 mg/dL (70-99); POTASSIUM,K 4.3 mmol/L (3.5-5.1); PROTEIN TOTAL,TP 6.4 g/dL (6.4-8.2); SODIUM,NA 143.0 mmol/L (136-145)
[2025-07-07 07:18] LABS: A/G RATIO 0.94; ESTIMATED GFR 91.0 mL/min (>=60)
[2025-07-07] MEDS: Omeprazole 20 MG Cap.CR PO SCH (08:02)
[2025-07-07] MEDS: Magnesium Sulfate 2 GM/50 mL 2 GM in Premix Bag 1 BAG IV ONE (10:11)
[2025-07-08 06:23] LABS: BASOPHILS PERCENT AUTO 0.7 % (0.0-1.0); EOSINOPHILS PERCENT AUTO 3.6 % (1.0-3.0); LYMPHOCYTES PERCENT AUTO 39.3 % (20.5-50.1); MONOCYTES PERCENT AUTO 9.5 % (2-8); NEUTROPHILS PERCENT AUTO 46.9 % (42.2-75.2); PLATELET COUNT,PLT 261 10^3/uL (150-450); RED BLOOD CELL COUNT 4.19 10^6/uL (4.6-6.2); WHITE BLOOD CELL COUNT,WBC 7.6 10^3/uL (5.0-10.0)
[2025-07-08 06:54] LABS: ALANINE AMINOTRANSFERASE,ALT 24.0 U/L (16-63); ASPARTATE AMNIOTRANSFERASE,AST 9.0 U/L (15-37); BILIRUBIN TOTAL 0.3 mg/dL (0.2-1.0); BLOOD UREA NITROGEN,BUN 14.0 mg/dL (7-18); CARBON DIOXIDE,CO2 27.0 mmol/L (21-32); CHLORIDE,CL 108.0 mmol/L (98-107); CREATININE 0.89 mg/dL (0.70-1.30); EST CRCL DRUG DOSING (CG) 102.53 mL/min; GLUCOSE RANDOM 119.0 mg/dL (70-99); POTASSIUM,K 4.6 mmol/L (3.5-5.1); PROTEIN TOTAL,TP 6.1 g/dL (6.4-8.2); SODIUM,NA 142.0 mmol/L (136-145)
[2025-07-08 06:57] LABS: A/G RATIO 0.91; ESTIMATED GFR 104.0 mL/min (>=60)
[2025-07-08 15:49] LABS: IRON,FE 125.0 ug/dL (65-175); PERCENT FE SATURATION 48.8 % (20.0-50.0)
[2025-07-08 15:57] LABS: FOLIC ACID 10.8 ng/mL (8.6-58.9)
[2025-07-09 06:20] LABS: BASOPHILS PERCENT AUTO 0.5 % (0.0-1.0); EOSINOPHILS PERCENT AUTO 3.1 % (1.0-3.0); LYMPHOCYTES PERCENT AUTO 35.4 % (20.5-50.1); MONOCYTES PERCENT AUTO 10.7 % (2-8); NEUTROPHILS PERCENT AUTO 50.3 % (42.2-75.2); PLATELET COUNT,PLT 252 10^3/uL (150-450); RED BLOOD CELL COUNT 4.49 10^6/uL (4.6-6.2); WHITE BLOOD CELL COUNT,WBC 7.4 10^3/uL (5.0-10.0)
[2025-07-09 06:56] LABS: ALANINE AMINOTRANSFERASE,ALT 25.0 U/L (16-63); ASPARTATE AMNIOTRANSFERASE,AST 15.0 U/L (15-37); BILIRUBIN TOTAL 0.3 mg/dL (0.2-1.0); BLOOD UREA NITROGEN,BUN 10.0 mg/dL (7-18); CARBON DIOXIDE,CO2 30.0 mmol/L (21-32); CHLORIDE,CL 107.0 mmol/L (98-107); CREATININE 0.72 mg/dL (0.70-1.30); EST CRCL DRUG DOSING (CG) 126.74 mL/min; GLUCOSE RANDOM 116.0 mg/dL (70-99); POTASSIUM,K 4.3 mmol/L (3.5-5.1); PROTEIN TOTAL,TP 6.2 g/dL (6.4-8.2); SODIUM,NA 142.0 mmol/L (136-145)
[2025-07-09 07:02] LABS: A/G RATIO 0.82; ESTIMATED GFR 111.0 mL/min (>=60)
[2025-07-09] MEDS: Magnesium Sulfate 2 GM/50 mL 2 GM in Premix Bag 1 BAG IV ONE (09:11)
[2025-07-09] MEDS: Furosemide 100 MG/10 ML SDV IVPUSH ONE (11:19)
[2025-07-09] MEDS: Potassium Chloride 10 MEQ Tab.ER PO ONE ×2 (11:19→13:51)
[2025-07-09 11:27] VITALS: BP 129/83; PULSE 69
== END 2025-07-09 14:11 | disposition home or self-care (01) | DRG 134 ==
LOC: DL.ED 13:19 → INTOOBSV 15:23 → DL.MS 15:23 → OBSVTOIN 07-08 08:46
PROVIDERS: ADMIT Student in an Organized Health Care Education/Training Program; ATTEND Student in an Organized Health Care Education/Training Program
DX: I26.99 Other pulmonary embolism without acute cor pulmonale (principal); I95.9 Hypotension, unspecified; H54.7 Unspecified visual loss; E78.00 Pure hypercholesterolemia, unspecified; I10 Essential (primary) hypertension; G47.30 Sleep apnea, unspecified; K21.9 Gastro-esophageal reflux disease without esophagitis; F32.A Depression, unspecified; E11.9 Type 2 diabetes mellitus without complications; G47.00 Insomnia, unspecified; F41.9 Anxiety disorder, unspecified; E83.42 Hypomagnesemia; D64.9 Anemia, unspecified; N17.9 Acute kidney failure, unspecified; Z79.899 Other long term (current) drug therapy; Z90.79 Acquired absence of other genital organ(s); Z85.47 Personal history of malignant neoplasm of testis; Z98.49 Cataract extraction status, unspecified eye; Z86.16 Personal history of COVID-19; Z79.01 Long term (current) use of anticoagulants; Z79.84 Long term (current) use of oral hypoglycemic drugs
CPT/HCPCS: 36415; 71045; 71275; 80053; 82607; 82728; 82746; 82947; 83036; 83540; 83550; 83735; 84484; 85025; 85379; 85610; 85730; 87428-QW; 93005; 93010; 96360; 96361; 96365; 96366; 96372; 96376; 97161-GP; 97165-GO; 99223; 99232; 99238; 99284; 99285-25; A9270-GY; G0378; J1644; J1650; J1938; J3475; J7030; Q9967